=== PATIENT | male | born 1940 | race Two or more races ===

== ENCOUNTER 2019-01-13 10:15 | Inpatient (IN) | payer MEDICARE, MEDICAID ==
[~2019-01-13] VITALS: Ht 167.6 cm; Wt 52.2 kg
[2019-01-13] MEDS ORDERED: LANTUS SOL100 UNIT/1 SUBQ (10:19)
[2019-01-13] MEDS ORDERED: METFORMIN HCL500 M1 ORAL (10:19)
[2019-01-13 10:24] VITALS: BP 205/95
--- NOTE | 2019-01-13 10:32 | NUR ---
ED Nurse Note: brought in by RA 26 from home due to low BS. Per EMS, initial BS was 30 and 250ml of D10 given by EMS. At the bedside, BS was 136. Pt is awake and alert does not remember what happened nor his name.
--- NOTE | 2019-01-13 10:42 | Emergency Room Report ---
History of Present Illness General Chief Complaint: Abnormal Labs Source: Patient, EMS Present Illness HPI Patient presents from nursing facility with reports of low blood sugar upon arrival the patient still has underlying confusion Does not know where he is does not know where he lives He is not aware of his medical diagnoses Currently denies any chest pain or shortness of breath denies any vomiting or diarrhea denies any focal weakness History of present illness is limited as the patient Appears to have some underlying dementia as well Allergies: Coded Allergies: No Known Allergies (Unverified , 01/13/19) Patient History Limited by: medical condition Past Medical History: see triage record Pertinent Family History: unable to obtain Reviewed Nursing Documentation: PMH: Agreed; PSxH: Agreed Nursing Documentation-PMH Past Medical History: No History, Except For Hx Diabetes: Yes Hx Neurological Problems: No - prostate Review of Systems All Other Systems: limited - Other than the ones mentioned in the history of present illness all others are reviewed however they do stay limited due to the patient's mental status Physical Exam Vital Signs Date Time Temp Pulse Resp B/P (MAP) Pulse Ox O2 Delivery O2 Flow Rate FiO2 01/13/19 10:17 98.2 74 18 187/87 98 Room Air Sp02 EP Interpretation: reviewed, normal General Appearance: no apparent distress Head: normocephalic, atraumatic Eyes: bilateral eye PERRL, bilateral eye EOMI ENT: dry mucus membranes Neck: supple, thyroid normal Respiratory: lungs clear, no respiratory distress, no retraction, no accessory muscle use Cardiovascular #1: regular rate, rhythm Gastrointestinal: non tender, other - Large mid abdominal firm mass palpable, nonpulsatile Musculoskeletal: normal inspection, other - No obvious focal deficit Neurologic: alert - To self, responsive Skin: normal color, no rash Lymphatic: no adenopathy Medical Decision Making Diagnostic Impression: Primary Impression: Persistent hypolycemia Additional Impressions: Malfunction of Mendez catheter Hydroureteronephrosis ER Course Patient is a fairly complex patient with multiple differential to consideration including but not limited to cardiac cardiopulmonary and vascular emergencies Given the hypoglycemia also medication reaction versus infectious pathology entertained Patient's initial glucose was at 80 after intervention however again on repeat evaluation is Reading low patient requires further dextrose Given the lack of appropriate input and history And the lack of knowledge regarding the abdominal mass CT imaging was also obtained GI and general surgery also consulted and patient admitted for further care The CT imaging does reveal malpositioning of the Mendez catheter patient has a very enlarged prostate likely leading to the malpositioning, this will require further intervention Labs Test 01/13/19 10:15 01/13/19 11:35 White Blood Count 9.0 K/UL (4.8-10.8) Red Blood Count 3.41 M/UL (4.70-6.10) Hemoglobin 10.3 G/DL (14.2-18.0) Hematocrit 31.6 % (42.0-52.0) Mean Corpuscular Volume 93 FL (80-99) Mean Corpuscular Hemoglobin 30.3 PG (27.0-31.0) Mean Corpuscular Hemoglobin Concent 32.7 G/DL (32.0-36.0) Red Cell Distribution Width 13.4 % (11.6-14.8) Platelet Count 207 K/UL (150-450) Mean Platelet Volume 6.2 FL (6.5-10.1) Neutrophils (%) (Auto) % (45.0-75.0) Lymphocytes (%) (Auto) % (20.0-45.0) Monocytes (%) (Auto) % (1.0-10.0) Eosinophils (%) (Auto) % (0.0-3.0) Basophils (%) (Auto) % (0.0-2.0) Differential Total Cells Counted 100 Neutrophils % (Manual) 83 % (45-75) Lymphocytes % (Manual) 12 % (20-45) Monocytes % (Manual) 5 % (1-10) Eosinophils % (Manual) 0 % (0-3) Basophils % (Manual) 0 % (0-2) Band Neutrophils 0 % (0-8) Platelet Estimate Adequate Platelet Morphology Normal Red Blood Cell Morphology Normal Urine Color Pale yellow Urine Appearance Cloudy Urine pH 5 (4.5-8.0) Urine Specific [place] 1.020 (1.005-1.035) Urine Protein 3+ (NEGATIVE) Urine Glucose (UA) Negative (NEGATIVE) Urine Ketones Negative (NEGATIVE) Urine Blood 5+ (NEGATIVE) Urine Nitrite Negative (NEGATIVE) Urine Bilirubin Negative (NEGATIVE) Urine Urobilinogen Normal MG/DL (0.0-1.0) Urine Leukocyte Esterase 3+ (NEGATIVE) Urine RBC 40-60 /HPF (0 - 0) Urine WBC 15-20 /HPF (0 - 0) Urine Squamous Epithelial Cells Occasional /LPF Urine Bacteria Few /HPF (NONE) Sodium Level 137 MMOL/L (136-145) Potassium Level 5.3 MMOL/L (3.5-5.1) Chloride Level 103 MMOL/L (98-107) Carbon Dioxide Level 20 MMOL/L (21-32) Anion Gap 14 mmol/L (5-15) Blood Urea Nitrogen 60 mg/dL (7-18) Creatinine 3.8 MG/DL (0.55-1.30) Estimat Glomerular Filtration Rate mL/min (>60) Glucose Level 186 MG/DL (74-106) Lactic Acid Level 2.40 mmol/L (0.4-2.0) 2.00 mmol/L (0.66-2.22) Calcium Level 9.3 MG/DL (8.5-10.1) Total Bilirubin 0.2 MG/DL (0.2-1.0) Aspartate Amino Transf (AST/SGOT) 20 U/L (15-37) Alanine Aminotransferase (ALT/SGPT) 22 U/L (12-78) Alkaline Phosphatase 81 U/L (46-116) Total Creatine Kinase 127 U/L (26-308) Creatine Kinase MB 5.0 NG/ML (0.0-3.6) Creatine Kinase MB Relative Index 3.9 Troponin I 0.000 ng/mL (0.000-0.056) Total Protein 7.6 G/DL (6.4-8.2) Albumin 3.0 G/DL (3.4-5.0) Globulin 4.6 g/dL Albumin/Globulin Ratio 0.7 (1.0-2.7) Lipase 124 U/L (73-393) Rhythm Strip Diag. Results EP Interpretation: yes Rate: 80 Rhythm: NSR, no PVC's, no ectopy Chest X-Ray Diagnostic Results Chest X-Ray Diagnostic Results : Chest X-Ray Ordered: Yes # of Views/Limited/Complete: 1 View Indication: Chest Pain EP Interpretation: Yes Interpretation: no consolidation, no effusion, no pneumothorax Impression: No acute disease Electronically Signed by: Britt Deluna, DO CT/MRI/US Diagnostic Results CT/MRI/US Diagnostic Results : Impression CT abdomen pelvisIMPRESSION: Bladder outlet obstruction due to a malpositioned Mendez catheter and prostate hypertrophy. Associated moderate hydroureteronephrosis. Patchy basilar infiltrates Hiatal hernia. Gallstones Last Vital Signs Date Time Temp Pulse Resp B/P (MAP) Pulse Ox O2 Delivery O2 Flow Rate FiO2 01/13/19 10:24 98.2 100 21 205/95 100 Room Air Status: improved Disposition: ADMITTED INPATIENT Condition: Serious Britt Deluna DO Jan 13, 2019 10:42
--- NOTE | 2019-01-13 10:42 | NUR ---
ED Nurse Note: Blood specimens and urine sent down to the lab. Pt has herrera cathether from home. A/Ox2.
[2019-01-13 10:54] LABS: HEMATOCRIT 31.6 % (42.0-52.0); HEMOGLOBIN 10.3 G/DL (14.2-18.0); MEAN CORPUSCULAR VOLUME 93 FL (80-99); PLATELET COUNT 207 K/UL (150-450); RED BLOOD COUNT 3.41 M/UL (4.70-6.10); RED CELL DISTRIBUTION WIDTH 13.4 % (11.6-14.8)
[2019-01-13 10:55] LABS: APPEARANCE,URINE CLOUDY; BILIRUBIN, URINE NEGATIVE (NEGATIVE); COLOR,URINE PALE YELLOW; GLUCOSE, URINE (UA) NEGATIVE (NEGATIVE); KETONES,URINE NEGATIVE (NEGATIVE); LEUKOCYTE ESTERASE ,URINE 3+ (NEGATIVE); NITRITE,URINE NEGATIVE (NEGATIVE); PH,URINE 5 (4.5-8.0); PROTEIN,URINE 3+ (NEGATIVE); UROBILINOGEN,URINE NORMAL MG/DL (0.0-1.0)
[2019-01-13 11:08] LABS: ANION GAP 14 mmol/L (5-15); BLOOD UREA NITROGEN 60 mg/dL (7-18); CALCIUM 9.3 MG/DL (8.5-10.1); CARBON DIOXIDE 20 MMOL/L (21-32); CHLORIDE 103 MMOL/L (98-107); CREATININE 3.8 MG/DL (0.55-1.30); POTASSIUM 5.3 MMOL/L (3.5-5.1); SODIUM 137 MMOL/L (136-145)
--- NOTE | 2019-01-13 11:38 | NUR ---
ED Nurse Note: LACTIC REFLEX SENT DOWN TO THE LAB.
[2019-01-13 11:41] LABS: ALANINE AMINOTRANSFERASE 22 U/L (12-78); ALBUMIN/GLOBULIN RATIO 0.7 (1.0-2.7); ALKALINE PHOSPHATASE 81 U/L (46-116); ASPARTATE AMINO TRANSFERASE 20 U/L (15-37); BILIRUBIN,TOTAL 0.2 MG/DL (0.2-1.0); CREATINE KINASE 127 U/L (26-308)
--- NOTE | 2019-01-13 11:44 | Diagnostic Imaging Report ---
Indication: Dyspnea Comparison: None A single view chest radiograph was obtained. Findings: Cardiomediastinal appearance is within normal limits for age. The lungs are clear. Pulmonary vascularity is appropriate. The diaphragmatic contour is smooth and costophrenic angles are sharp. No pleural effusions are identified. The bones are unremarkable. Impression: No acute findings
[2019-01-13] MEDS ORDERED: cefTRIAXone 1 GM in NS 55 ML IVPB ONE (12:15)
--- NOTE | 2019-01-13 13:02 | NUR ---
ED Nurse Note: PER ODIN CAIN, UNABLE TO GIVE TELEPHONE REPORT DUE TO INTERNAL PHONE SYSTEM DOWN AT THIS TIME.
--- NOTE | 2019-01-13 13:12 | NUR ---
ED Nurse Note: ATTEMPTED TO GIVE REPORT, NO NURSE RECEIVING THE REPORT AT THIS TIME.
[2019-01-13 13:25] VITALS: BP 174/70
--- NOTE | 2019-01-13 13:25 | NUR ---
ED Nurse Note: TELEPHONE REPORT GIVEN TO LISA SMITH. PER RN, BED IS NOT READY. WILL SEND THE PT UP ONCE THE BED IS READY.
--- NOTE | 2019-01-13 13:30 | NUR ---
ED Nurse Note: BS CHECKED. BS RESULT OF CRITICALL LOW. NOTIFIED DR. Medina WILL FOLLOW UP ON NEW ORDER.
--- NOTE | 2019-01-13 13:36 | NUR ---
Note lemuel in EDM - 01/13/19 at 1354 by [email or web address] ED Nurse Note: PER DR. Villanueva, HE WILL ORDER CT ABDOMINAL AND PT CAN BE TRANSFER UP TO 2E WITHOUT THE RESULT. RADIOLOGY CONTACTED FOR THE NEW ORDER.
--- NOTE | 2019-01-13 14:34 | NUR ---
TRANSFER TO FLOOR: Per Dr Villanueva, no need to wait for the CT abdomin result. Patient transferred to #[id number] as ordered via gurney and textiles and clothing teacher. Report given to LISA Paredes. Belongings given to pt and belonging list checked by ODIN Villafana. Pt's BS is 115 after D50%, LISA Paredes made aware.
--- NOTE | 2019-01-13 14:40 | NUR ---
NURSE NOTES: Received report from Steve GONZALEZ. Pt was admitted from ER via [facility], arrived to unit awake, alert, oriented x3, Upper Sorbian speaking, able to communicate minimal Egyptian. Tele monitor placed on pt, displays ST, HR fluctuating from 110-140's, pt is visibly shaking, reports feeling very cold. On room air with no respiratory distress. Denies pain. Skin is intact. IV access on right AC #20G, saline lock, patent/intact. Per pt, he has been using a cane at home for ambulation, which was left at home. Currently pt is on fall precautions, bed in lowest position, three side rails up, brakes engaged, alarm on, call light within easy reach. Pt presents with a Mendez catheter and leg/bag, draining a small amount of dark/cloudy urine. Upon assessment, abdomen/bladder is very distended. Will contact MD for admission orders and follow plan of care per MD orders and protocol.
--- NOTE | 2019-01-13 14:43 | Diagnostic Imaging Report ---
Indication: Abdominal pain Technique: Continuous helical transaxial imaging of the abdomen and pelvis was obtained from the lung bases to the pubic symphysis. No intravenous contrast was administered. Coronal 2-D reformats were also obtained. Automatic Exposure Control was utilized. Total Dose length Product (DLP): 473.[address] Dose Index Volume (CTDIvol): 9.5 mGy Comparison: none Findings: There are patchy ill-defined infiltrates at the lung bases suspicious for pneumonia. Correlate clinically. Hiatal hernia moderate in size demonstrated. The urinary bladder is severely distended suspicious for bladder outlet obstruction. A Mendez catheter is present but the balloon is inflated within the prostate gland. This requires repositioning. The prostate is enlarged measuring 7.6 x 5.2 x 5.7 cm. There is associated moderate bilateral hydroureteronephrosis. Gallstones noted within a contracted gallbladder. IMPRESSION: Bladder outlet obstruction due to a malpositioned Mendez catheter and prostate hypertrophy. Associated moderate hydroureteronephrosis. Patchy basilar infiltrates Hiatal hernia. Gallstones The CT scanner at [facility] is accredited by the [employer] and the scans are performed using dose optimization techniques as appropriate to a performed exam including Automatic Exposure control.
--- NOTE | 2019-01-13 14:57 | GI Initial Consult Note ---
History of Present Illness General Date patient seen: Jan 13, 2019 Time patient seen: 14:53 Reason for Hospitalization: Abnormal Labs Referring physician: KUMAR Reason for Consultation: Abdominal mass Present Illness HPI Patient presents from nursing facility with reports of low blood sugar upon arrival the patient still has underlying confusion Does not know where he is does not know where he lives He is not aware of his medical diagnoses Currently denies any chest pain or shortness of breath denies any vomiting or diarrhea denies any focal weakness History of present illness is limited as the patient Appears to have some underlying dementia as well GI consulted for reported abdominal mass. ROS limited, patient with AMS. Patient seen, awake alert and oriented in no apparent distress. Noted to have severe lower abdominal distention. Abdominal pelvic CT was performed in the emergency room noted that the urinary bladder is severely distended due to bladder outlet obstruction secondary to malposition of the Herrera catheter. Labs reviewed; no leukocytosis, normocytic anemia with hemoglobin of 10.3, elevated creatinine level of 3.8, hyperkalemia with potassium of 5.3. Unknown history of endoscopic or colonoscopy at this time. Home Meds Reported Medications Insulin Glargine (LANTUS) 100 Unit/1 Ml Insuln.pen, 0 SUBQ BEDTIME, #1 EA 0 Refills 01/13/19 Metformin Hcl* (METFORMIN HCL*) 500 Mg Tablet, ORAL TWICE A DAY, TAB 01/13/19 Med list reviewed/reconciled: Yes Allergies: Coded Allergies: No Known Allergies (Unverified , 01/13/19) Patient History History Provided By: Medical Record PMH Narrative Limited by: medical condition Past Medical History: see triage record Pertinent Family History: unable to obtain Reviewed Nursing Documentation: PMH: Agreed; PSxH: Agreed Nursing Documentation-PMH Past Medical History: No History, Except For Hx Diabetes: Yes Hx Neurological Problems: No - prostate Social History: Denies: smoking, alcohol use, drug use, other Review of Systems All Other Systems: limited Physical Exam Vital Signs Date Time Temp Pulse Resp B/P (MAP) Pulse Ox O2 Delivery O2 Flow Rate FiO2 01/13/19 10:17 98.2 74 18 187/87 98 Room Air Sp02 EP Interpretation: reviewed, normal Labs Laboratory Tests Test 01/13/19 10:15 01/13/19 11:35 White Blood Count 9.0 K/UL (4.8-10.8) Red Blood Count 3.41 M/UL (4.70-6.10) L Hemoglobin 10.3 G/DL (14.2-18.0) L Hematocrit 31.6 % (42.0-52.0) L Mean Corpuscular Volume 93 FL (80-99) Mean Corpuscular Hemoglobin 30.3 PG (27.0-31.0) Mean Corpuscular Hemoglobin Concent 32.7 G/DL (32.0-36.0) Red Cell Distribution Width 13.4 % (11.6-14.8) Platelet Count 207 K/UL (150-450) Mean Platelet Volume 6.2 FL (6.5-10.1) L Neutrophils (%) (Auto) % (45.0-75.0) Lymphocytes (%) (Auto) % (20.0-45.0) Monocytes (%) (Auto) % (1.0-10.0) Eosinophils (%) (Auto) % (0.0-3.0) Basophils (%) (Auto) % (0.0-2.0) Differential Total Cells Counted 100 Neutrophils % (Manual) 83 % (45-75) H Lymphocytes % (Manual) 12 % (20-45) L Monocytes % (Manual) 5 % (1-10) Eosinophils % (Manual) 0 % (0-3) Basophils % (Manual) 0 % (0-2) Band Neutrophils 0 % (0-8) Platelet Estimate Adequate Platelet Morphology Normal Red Blood Cell Morphology Normal Urine Color Pale yellow Urine Appearance Cloudy Urine pH 5 (4.5-8.0) Urine Specific [place] 1.020 (1.005-1.035) Urine Protein 3+ (NEGATIVE) H Urine Glucose (UA) Negative (NEGATIVE) Urine Ketones Negative (NEGATIVE) Urine Blood 5+ (NEGATIVE) H Urine Nitrite Negative (NEGATIVE) Urine Bilirubin Negative (NEGATIVE) Urine Urobilinogen Normal MG/DL (0.0-1.0) Urine Leukocyte Esterase 3+ (NEGATIVE) H Urine RBC 40-60 /HPF (0 - 0) H Urine WBC 15-20 /HPF (0 - 0) H Urine Squamous Epithelial Cells Occasional /LPF Urine Bacteria Few /HPF (NONE) Sodium Level 137 MMOL/L (136-145) Potassium Level 5.3 MMOL/L (3.5-5.1) H Chloride Level 103 MMOL/L (98-107) Carbon Dioxide Level 20 MMOL/L (21-32) L Anion Gap 14 mmol/L (5-15) Blood Urea Nitrogen 60 mg/dL (7-18) H Creatinine 3.8 MG/DL (0.55-1.30) H Estimat Glomerular Filtration Rate mL/min (>60) Glucose Level 186 MG/DL (74-106) H Lactic Acid Level 2.40 mmol/L (0.4-2.0) H 2.00 mmol/L (0.66-2.22) Calcium Level 9.3 MG/DL (8.5-10.1) Total Bilirubin 0.2 MG/DL (0.2-1.0) Aspartate Amino Transf (AST/SGOT) 20 U/L (15-37) Alanine Aminotransferase (ALT/SGPT) 22 U/L (12-78) Alkaline Phosphatase 81 U/L (46-116) Total Creatine Kinase 127 U/L (26-308) Creatine Kinase MB 5.0 NG/ML (0.0-3.6) H Creatine Kinase MB Relative Index 3.9 Troponin I 0.000 ng/mL (0.000-0.056) Total Protein 7.6 G/DL (6.4-8.2) Albumin 3.0 G/DL (3.4-5.0) L Globulin 4.6 g/dL Albumin/Globulin Ratio 0.7 (1.0-2.7) L Lipase 124 U/L (73-393) General Appearance: well appearing, no apparent distress, alert Head: normocephalic EENT: PERRL/EOMI, normal ENT inspection Neck: supple Respiratory: normal breath sounds, no respiratory distress Cardiovascular: normal rate Gastrointestinal: normal inspection, non tender, soft, normal bowel sounds, non -distended, distended - Lower abdominal/pelvic Rectal: deferred Genitourinary: deferred Musculoskeletal: normal inspection, back normal Neurologic: normal inspection, alert, oriented x3, responsive Psychiatric: normal inspection, judgement/insight normal, memory normal Skin: normal inspection, normal color, no rash, warm/dry, palpation normal, well hydrated Lymphatic: normal inspection, no adenopathy GI: Plan Problems: (1) Anemia (2) Malfunction of Herrera catheter (3) Distended bladder (4) Abdominal pain (5) Hydroureteronephrosis Plan reinsert new herrera anemia work up OB stool r/o GI bleed monitor H&H, prn transfusions bowel regime ppi fu labs We will consider endoscopic colonoscopy if necessary Discussed with Dr. Gonzalez. Thank you for this patient referral, we will follow. The patient was seen and examined at bedside and all new and available data was reviewed in the patients chart. I agree with the above findings, impression and plan. (Patient seen earlier today. Signature stamp does not reflect patient encounter time.). - MD Polly Jackson AnhBradley BREEDER HEN SERVICE TECHNICIAN Jan 13, 2019 14:57
[2019-01-13 16:00] VITALS: BP 107/77
[2019-01-13] MEDS ORDERED: D5 1/4NS 1000ml 1,000 ML IV SCH (16:00)
--- NOTE | 2019-01-13 16:30 | NUR ---
NURSE NOTES: Per orders, Mendez Catheter was replaced with a new 16F Mendez catheter, initial drain was dark red blood clot, followed by clear/yellow urine, total output 1800mL. Pt states feeling relieved.
[2019-01-13] MEDS ORDERED: D5 1/2NS 1,000 ML IV SCH (16:45)
[2019-01-13] MEDS ORDERED: TAMSULOSIN HCL0.4 MG ORAL (18:35)
[2019-01-13] MEDS ORDERED: LOSARTAN POTASS25 M1 PO (18:35)
[2019-01-13] MEDS ORDERED: AVODART0.5 MG ORAL (18:35)
--- NOTE | 2019-01-13 19:15 | NUR ---
CASE MANAGEMENT: INITIAL REVIEW 01/13/2019 78 YO M ROWENA FROM HOME CC: LOW BS PMHx: DM. SI:PERSISTENT HYPOGLYCEMIA. T 98.2 HR 74 RR 18 B/P 187/87 SATS 98% ON RA K 5.3 CO2 20 BUN 60 CR 3.8 GLU 186 IS: NO MEDS GIVEN IN ED PATIENT ADMITTED TO TELE 01/13/2019 @ 1108 DCP: PATIENT TO BE DISCHARGED TO HOME ONCE MEDICALLY CLEARED. PLAN OF CARE: GLYCEMIC CONTROL AND MONITORING Addendum: 01/13/19 at 1935 by Ana Kidd CM [employer]
--- NOTE | 2019-01-13 19:33 | NUR ---
NURSE NOTES: Patient received from LISA Paredes. Patient on bed, awake, no distress noted. On room air. Mendez catheter in place. draining with yellow colored urine. No complaints of pain at this time. Call light within reach. Bed brakes engaged.
[2019-01-13 20:00] VITALS: BP 137/67
--- NOTE | 2019-01-13 20:12 | NUR ---
HAND-OFF: Report given to Salma GONZALEZ. Pt is resting in bed in stable condition. Endorsed plan of care.
[2019-01-13] MEDS: NovoLOG Insulin Flexpen SUBQ SCH (21:00)
[2019-01-13] MEDS ORDERED: Tamsulosin 0.4mg cap ORAL SCH (21:00)
--- NOTE | 2019-01-13 21:09 | NUR ---
NURSE NOTES: BS 35. D50 25ml given. Awake, eyes are open. Noted confusion and disoriented. Two cups of apple juice given. Angelica, daughter at bedside at this time.
--- NOTE | 2019-01-13 21:32 | NUR ---
NURSE NOTES: BS 185. Patient is more alert, speaking in tuvaluan with daughter.
--- NOTE | 2019-01-13 22:32 | NUR ---
NURSE NOTES: BS retaken. BS135. Monitoring patient closely for signs of hypoglycemia. At this time, patient is resting. No distress noted.
[2019-01-13 23:55] VITALS: BP 148/94
[2019-01-14 03:53] VITALS: BP 143/70
[2019-01-14] MEDS: NovoLOG Insulin Flexpen SUBQ SCH ×4 (05:28→21:04)
--- NOTE | 2019-01-14 05:31 | NUR ---
NURSE NOTES: BS63 at this time. D50 25ml given. Will recheck again. Patient alert, able to verbalize. Denies pain.
--- NOTE | 2019-01-14 06:41 | NUR ---
NURSE NOTES: BS124. Patient is awake, talkative and is having concerns about his health. He expresses his concerns regarding his prostate and wants surgery done to it so he wont be in this situation again and with herrera catheter. Explained to patient that we will have the PMD aware of his concerns. He verbalized understanding.
--- NOTE | 2019-01-14 07:19 | NUR ---
HAND-OFF: Report given to LISA Bowden. Plan of care.
--- NOTE | 2019-01-14 07:20 | NUR ---
NURSE NOTES: Received patient from LISA Fountain. Patient is resting in bed, awake and verbally responsive. No signs of distress. Well-groomed, clean and dry. Bed in lowest position with two side rails up.Bed brakes engaged. Call light and bed side table within reach. Will continue to monitor and follow plan of care.
[2019-01-14 08:00] VITALS: BP 149/65
[2019-01-14 08:38] LABS: BASOPHILS % (AUTO) 0.6 % (0.0-2.0); EOSINOPHILS % (AUTO) 1.4 % (0.0-3.0); HEMATOCRIT 31.9 % (42.0-52.0); HEMOGLOBIN 10.5 G/DL (14.2-18.0); LYMPHOCYTES % (AUTO) 19.2 % (20.0-45.0); MEAN CORPUSCULAR VOLUME 93 FL (80-99); MONOCYTES % (AUTO) 4.8 % (1.0-10.0); NEUTROPHILS % (AUTO) 74.1 % (45.0-75.0); PLATELET COUNT 207 K/UL (150-450); RED BLOOD COUNT 3.45 M/UL (4.70-6.10); RED CELL DISTRIBUTION WIDTH 13.5 % (11.6-14.8); WHITE BLOOD COUNT 8.8 K/UL (4.8-10.8)
[2019-01-14] MEDS ORDERED: metFORMIN 500mg tab ORAL SCH (09:00)
[2019-01-14] MEDS ORDERED: Losartan 25mg tab ORAL SCH (09:00)
[2019-01-14 09:17] LABS: ALANINE AMINOTRANSFERASE 15 U/L (12-78); ALBUMIN 2.6 G/DL (3.4-5.0); ALBUMIN/GLOBULIN RATIO 0.6 (1.0-2.7); ALKALINE PHOSPHATASE 76 U/L (46-116); ANION GAP 14 mmol/L (5-15); ASPARTATE AMINO TRANSFERASE 20 U/L (15-37); BILIRUBIN,TOTAL 0.4 MG/DL (0.2-1.0); BLOOD UREA NITROGEN 47 mg/dL (7-18); CALCIUM 8.8 MG/DL (8.5-10.1); CARBON DIOXIDE 20 MMOL/L (21-32); CHLORIDE 105 MMOL/L (98-107); CREATININE 3.2 MG/DL (0.55-1.30); FERRITIN 560 NG/ML (8-388); POTASSIUM 4.6 MMOL/L (3.5-5.1); SODIUM 139 MMOL/L (136-145)
[2019-01-14 09:37] LABS: INR 1.1 (0.9-1.1)
[2019-01-14 09:42] LABS: % IRON SATURATION 13 % (15-50); IRON 29 ug/dL (50-175); TOTAL IRON BINDING CAPACITY 222 ug/dL (250-450)
--- NOTE | 2019-01-14 10:46 | GI Progress Note ---
Assessment/Plan Problems: (1) Malfunction of Mendez catheter ICD Codes: T83.011A - Breakdown (mechanical) of indwelling urethral catheter, initial encounter SNOMED: 350410419 (2) Hydroureteronephrosis ICD Codes: N13.30 - Unspecified hydronephrosis SNOMED: 20693035 (3) Abdominal pain ICD Codes: R10.9 - Unspecified abdominal pain SNOMED: 84760740 (4) Distended bladder ICD Codes: N32.89 - Other specified disorders of bladder SNOMED: 78482990 (5) Anemia ICD Codes: D64.9 - Anemia, unspecified SNOMED: 396555825 Status: doing well, stable Status Narrative Discussed with Dr. Gonzalez Assessment/Plan Mendez catheter replaced, with 1.8 L of output advance renal diet anemia work up >> has low iron saturation, but will hold Venofer due to elevated ferritin levels OB stool r/o GI bleed monitor H&H, prn transfusions bowel regime ppi fu labs We will consider endoscopic colonoscopy if necessary The patient was seen and examined at bedside and all new and available data was reviewed in the patients chart. I agree with the above findings, impression and plan. (Patient seen earlier today. Signature stamp does not reflect patient encounter time.). - Guanakito Gonzalez MD Subjective Subjective Abdominal pain and abdominal distention resolved Objective Last 24 Hour Vital Signs Date Time Temp Pulse Resp B/P (MAP) Pulse Ox O2 Delivery O2 Flow Rate FiO2 01/14/19 09:00 Room Air 01/14/19 08:00 99.1 72 18 149/65 (93) 100 01/14/19 08:00 81 01/14/19 03:53 97.7 72 16 143/70 (94) 98 01/14/19 03:37 64 01/13/19 23:55 96.5 94 18 148/94 (112) 98 01/13/19 23:28 73 01/13/19 21:00 Room Air 01/13/19 20:06 93 01/13/19 20:00 97.4 92 20 137/67 (90) 97 01/13/19 16:00 96.2 86 20 107/77 (87) 95 01/13/19 16:00 125 01/13/19 14:43 140 01/13/19 14:35 98.2 76 13 174/70 98 Room Air 01/13/19 14:30 Room Air 01/13/19 13:25 76 13 174/70 98 Room Air Intake and Output 01/13/19 01/14/19 19:00 07:00 Intake Total 565 ml 480 ml Output Total 2050 ml 1300 ml Balance -1485 ml -820 ml Intake Oral 450 ml 120 ml IV Total 115 ml 360 ml Output Urine Total 2050 ml 1300 ml # Bowel Movements 1 Laboratory Tests Test 01/13/19 11:35 01/14/19 07:36 01/14/19 09:00 Lactic Acid Level 2.00 mmol/L (0.66-2.22) White Blood Count 8.8 K/UL (4.8-10.8) Red Blood Count 3.45 M/UL (4.70-6.10) L Hemoglobin 10.5 G/DL (14.2-18.0) L Hematocrit 31.9 % (42.0-52.0) L Mean Corpuscular Volume 93 FL (80-99) Mean Corpuscular Hemoglobin 30.5 PG (27.0-31.0) Mean Corpuscular Hemoglobin Concent 32.9 G/DL (32.0-36.0) Red Cell Distribution Width 13.5 % (11.6-14.8) Platelet Count 207 K/UL (150-450) Mean Platelet Volume 6.6 FL (6.5-10.1) Neutrophils (%) (Auto) 74.1 % (45.0-75.0) Lymphocytes (%) (Auto) 19.2 % (20.0-45.0) L Monocytes (%) (Auto) 4.8 % (1.0-10.0) Eosinophils (%) (Auto) 1.4 % (0.0-3.0) Basophils (%) (Auto) 0.6 % (0.0-2.0) Reticulocyte Count Pending Sodium Level 139 MMOL/L (136-145) Potassium Level 4.6 MMOL/L (3.5-5.1) Chloride Level 105 MMOL/L (98-107) Carbon Dioxide Level 20 MMOL/L (21-32) L Anion Gap 14 mmol/L (5-15) Blood Urea Nitrogen 47 mg/dL (7-18) H Creatinine 3.2 MG/DL (0.55-1.30) H Estimat Glomerular Filtration Rate mL/min (>60) Glucose Level 138 MG/DL (74-106) H Calcium Level 8.8 MG/DL (8.5-10.1) Iron Level 29 ug/dL (50-175) L Total Iron Binding Capacity 222 ug/dL (250-450) L Percent Iron Saturation 13 % (15-50) L Unsaturated Iron Binding 193 ug/dL (112-346) Ferritin 560 NG/ML (8-388) H Total Bilirubin 0.4 MG/DL (0.2-1.0) Aspartate Amino Transf (AST/SGOT) 20 U/L (15-37) Alanine Aminotransferase (ALT/SGPT) 15 U/L (12-78) Alkaline Phosphatase 76 U/L (46-116) Total Protein 7.0 G/DL (6.4-8.2) Albumin 2.6 G/DL (3.4-5.0) L Globulin 4.4 g/dL Albumin/Globulin Ratio 0.6 (1.0-2.7) L Carcinoembryonic Antigen Pending Vitamin B12 Level 408 PG/ML (193-986) Folate 14.7 NG/ML (8.6-58.9) Thyroid Stimulating Hormone (TSH) 3.854 uiU/mL (0.358-3.740) Free Thyroxine 0.90 NG/DL (0.76-1.46) Prothrombin Time 11.5 SEC (9.30-11.50) Prothromb Time International Ratio 1.1 (0.9-1.1) Activated Partial Thromboplast Time 31 SEC (23-33) Height (Feet): 5 Height (Inches): 6.00 Weight (Pounds): 120 General Appearance: WD/WN, no apparent distress, alert Cardiovascular: normal rate Respiratory/Chest: normal breath sounds, no respiratory distress Abdominal Exam: normal bowel sounds, non tender, soft Extremities: normal range of motion, non-tender Objective Mendez draining well Evelio Matias NP Jan 14, 2019 10:46
--- NOTE | 2019-01-14 11:26 | NUR ---
CASE MANAGEMENT:REVIEW 01/14/19 SI: HYDROURETERONEPHROSIS ABD PAIN. ANEMIA. MALFUNCTION BAEZ 99.1 72 18 149/65 100% ON RA H/H-10.5/31.9 BUN+47 CR+3.2 IS: SS INSULIN AC+HS FLOMAX PO QHS : TELEMETRY STATUS DCP: PATIENT IS FROM HOME PLAN: SWALLOW EVAL
--- NOTE | 2019-01-14 11:35 | NUR ---
NURSE NOTES: Patient transferred from telemetry, report received from William GONZALEZ, belongings reviewed, no discrepancies noted, no distress noted, bed is locked and in lowest position, patient oriented to floor, will continue to monitor.
--- NOTE | 2019-01-14 11:35 | NUR ---
TRANSFER TO FLOOR: Patient transferred to [facility], per Dr. Goldman's order. Report given to LISA Mckeon. Belongings given to LISA Mckeon. Family (Angelica) informed of transfer. Patient transferred in stable condition.
[2019-01-14 12:00] VITALS: BP 146/72
--- NOTE | 2019-01-14 13:47 | Consultation ---
History of Present Illness General Date patient seen: Jan 14, 2019 Reason for Hospitalization: Abnormal Labs Present Illness HPI 78 year old male with multiple medical comorbidities and chronic indwelling catheter presented with abdominal pain and abnormal labs. on exam had large abd mass. surgery called to evaluate. patient seen, chart reviewed, patient examined. CT noted. Allergies: Coded Allergies: No Known Allergies (Unverified , 01/13/19) Medication History Scheduled Dutasteride (Avodart), 0.5 MG ORAL DAILY, (Reported) Insulin Glargine (Lantus), 0 SUBQ BEDTIME, (Reported) Losartan Potassium (Losartan Potassium), 25 MG PO DAILY, (Reported) Metformin Hcl* (Metformin Hcl*), Unknown Dose ORAL TWICE A DAY, (Reported) Tamsulosin Hcl (Tamsulosin Hcl*), 0.4 MG ORAL BEDTIME, (Reported) Patient History History Provided By: Patient, Family Member, Medical Record, PMD Healthcare decision maker Resuscitation status Full Code Advanced Directive on File Past Medical/Surgical History Past Medical/Surgical History: (1) Anemia (2) Distended bladder (3) Abdominal pain (4) Hydroureteronephrosis (5) Malfunction of Herrera catheter (6) Persistent hypolycemia Review of Systems Review of Symptoms General ROS: no weight loss or fever Psychological ROS: no depression or mood changes, no memory loss Ophthalmic ROS: no visual changes or eye irritation ENT ROS: no nasal congestion, hearing loss, dizziness Allergy and Immunology ROS: no allergic symptoms or urticaria Hematological and Lymphatic ROS: no swollen glands, unusual bleeding or bruising Endocrine ROS: no polyuria, polydipsia, weight changes, temperature intolerance Respiratory ROS: no cough, shortness of breath, or wheezing Cardiovascular ROS: no chest pain or dyspnea on exertion Gastrointestinal ROS: denies abdominal pain, bright red blood in stool. Musculoskeletal ROS: no myalgias or arthralgias Neurological ROS: no TIA or stroke symptoms Dermatological ROS: no new or changing skin lesions, rashes or pruritis Physical Exam Physical Exam General appearance: alert, cooperative, no distress, appears stated age Head: Normocephalic, without obvious abnormality, atraumatic Eyes: conjunctivae/corneas clear. PERRL, EOM's intact. Fundi benign Throat: Lips, mucosa, and tongue normal. Teeth and gums normal Neck: supple, symmetrical, trachea midline, no adenopathy, thyroid: not enlarged, symmetric, no tenderness/mass/nodules, no carotid bruit and no JVD Lungs: clear to auscultation bilaterally Heart: regular rate and rhythm, S1, S2 normal, no murmur, click, rub or gallop Abdomen: soft, non-tender. Bowel sounds normal. No masses, likely bladder distention Extremities: extremities normal, atraumatic, no cyanosis or edema Pulses: 2+ and symmetric Skin: Skin color, texture, turgor normal. No rashes or lesions Neurologic: Grossly normal Last 24 Hour Vital Signs Date Time Temp Pulse Resp B/P (MAP) Pulse Ox O2 Delivery O2 Flow Rate FiO2 01/14/19 09:00 Room Air 01/14/19 08:00 99.1 72 18 149/65 (93) 100 01/14/19 08:00 81 01/14/19 03:53 97.7 72 16 143/70 (94) 98 01/14/19 03:37 64 01/13/19 23:55 96.5 94 18 148/94 (112) 98 01/13/19 23:28 73 01/13/19 21:00 Room Air 01/13/19 20:06 93 01/13/19 20:00 97.4 92 20 137/67 (90) 97 01/13/19 16:00 96.2 86 20 107/77 (87) 95 01/13/19 16:00 125 01/13/19 14:43 140 01/13/19 14:35 98.2 76 13 174/70 98 Room Air 01/13/19 14:30 Room Air Intake and Output 01/13/19 01/14/19 19:00 07:00 Intake Total 565 ml 480 ml Output Total 2050 ml 1300 ml Balance -1485 ml -820 ml Intake Oral 450 ml 120 ml IV Total 115 ml 360 ml Output Urine Total 2050 ml 1300 ml # Bowel Movements 1 Laboratory Tests Test 01/14/19 07:36 01/14/19 09:00 White Blood Count 8.8 K/UL (4.8-10.8) Red Blood Count 3.45 M/UL (4.70-6.10) L Hemoglobin 10.5 G/DL (14.2-18.0) L Hematocrit 31.9 % (42.0-52.0) L Mean Corpuscular Volume 93 FL (80-99) Mean Corpuscular Hemoglobin 30.5 PG (27.0-31.0) Mean Corpuscular Hemoglobin Concent 32.9 G/DL (32.0-36.0) Red Cell Distribution Width 13.5 % (11.6-14.8) Platelet Count 207 K/UL (150-450) Mean Platelet Volume 6.6 FL (6.5-10.1) Neutrophils (%) (Auto) 74.1 % (45.0-75.0) Lymphocytes (%) (Auto) 19.2 % (20.0-45.0) L Monocytes (%) (Auto) 4.8 % (1.0-10.0) Eosinophils (%) (Auto) 1.4 % (0.0-3.0) Basophils (%) (Auto) 0.6 % (0.0-2.0) Reticulocyte Count Pending Sodium Level 139 MMOL/L (136-145) Potassium Level 4.6 MMOL/L (3.5-5.1) Chloride Level 105 MMOL/L (98-107) Carbon Dioxide Level 20 MMOL/L (21-32) L Anion Gap 14 mmol/L (5-15) Blood Urea Nitrogen 47 mg/dL (7-18) H Creatinine 3.2 MG/DL (0.55-1.30) H Estimat Glomerular Filtration Rate mL/min (>60) Glucose Level 138 MG/DL (74-106) H Calcium Level 8.8 MG/DL (8.5-10.1) Iron Level 29 ug/dL (50-175) L Total Iron Binding Capacity 222 ug/dL (250-450) L Percent Iron Saturation 13 % (15-50) L Unsaturated Iron Binding 193 ug/dL (112-346) Ferritin 560 NG/ML (8-388) H Total Bilirubin 0.4 MG/DL (0.2-1.0) Aspartate Amino Transf (AST/SGOT) 20 U/L (15-37) Alanine Aminotransferase (ALT/SGPT) 15 U/L (12-78) Alkaline Phosphatase 76 U/L (46-116) Total Protein 7.0 G/DL (6.4-8.2) Albumin 2.6 G/DL (3.4-5.0) L Globulin 4.4 g/dL Albumin/Globulin Ratio 0.6 (1.0-2.7) L Carcinoembryonic Antigen Pending Vitamin B12 Level 408 PG/ML (193-986) Folate 14.7 NG/ML (8.6-58.9) Thyroid Stimulating Hormone (TSH) 3.854 uiU/mL (0.358-3.740) Free Thyroxine 0.90 NG/DL (0.76-1.46) Prothrombin Time 11.5 SEC (9.30-11.50) Prothromb Time International Ratio 1.1 (0.9-1.1) Activated Partial Thromboplast Time 31 SEC (23-33) Height (Feet): 5 Height (Inches): 6.00 Weight (Pounds): 120 Medications Current Medications Medications (Trade) Dose Ordered Sig/Joey Route PRN Reason Start Time Stop Time Status Last Admin Dose Admin Dextrose (Dextrose 50%) 25 ml Q30M PRN IV Hypoglycemia 01/14/19 11:45 02/12/19 16:44 Dextrose (Dextrose 50%) 50 ml Q30M PRN IV Hypoglycemia 01/14/19 11:45 02/12/19 16:44 Insulin Aspart (NovoLOG) BEFORE MEALS AND HS SUBQ 01/14/19 12:00 02/12/19 11:59 Tamsulosin HCl (Flomax) 0.4 mg BEDTIME ORAL 01/14/19 21:00 02/12/19 20:59 Assessment/Plan Problem List: (1) Abdominal pain Assessment & Plan: abd pain with large pelvic mass. herrera changed and resolved. CT noted. malpositioned foloy cath now resolved exam benign now after herrera changed. will follow with recs thank you ICD Codes: R10.9 - Unspecified abdominal pain SNOMED: 35547701 (2) Distended bladder ICD Codes: N32.89 - Other specified disorders of bladder SNOMED: 07065765 Jonn Gonzalez Jan 14, 2019 13:47
--- NOTE | 2019-01-14 15:30 | History and Physical Report ---
DATE OF ADMISSION: 01/13/2019 DATE OF EVALUATION: 01/14/2019 REASON FOR ADMISSION: Hypoglycemia. HISTORY OF PRESENT ILLNESS: This is a very pleasant 78-year-old male, who was presented to the hospital with hypoglycemia. The patient unable to provide any clear history. There are some accompanying medical records, which note that he was seen at [facility] in November with reports that he may need a colostomy bag. The patient has a history of diabetes mellitus, hypertension, BPH, hyperlipidemia. He has a chronic colostomy/chronic urinary bag. The patient was then discharged home. Per paramedics report, the patient was transported from his home with altered level of consciousness. The patient was found at home lying on couch. His blood sugar was running low on the meter and he was transported to [facility] where he was given dextrose with improvement in his mental status. At this point, no other history is known about this patient. PAST HISTORY: Cognitive impairment, hypertension, BPH, chronic Mendez, hyperlipidemia, diabetes mellitus. HOME MEDICATIONS: Not known. REVIEW OF SYSTEMS: Unobtainable. PHYSICAL EXAMINATION: GENERAL: Reveals an 78-year-old male. HEENT: Unremarkable. LUNGS: Clear breath sounds bilaterally. ABDOMEN: Soft. GENITOURINARY: He has a Mendez catheter in place. EXTREMITIES: There is no edema. NEUROLOGIC: Nonfocal. IMAGING STUDIES: The patient underwent an abdominal CT, which showed that he has a malpositioned Mendez and prostate hypertrophy. There is also moderate hydroureteronephrosis and patchy basilar infiltrates as well as hiatal hernia and gallstones. LABORATORY DATA: Lab testing is otherwise unremarkable. Hemoglobin 10.3. Lactic acid 2.0. Initial chemistries notable for potassium 5.3, creatinine 3.8. IMPRESSION: 1. Renal failure. 2. History of BPH. 3. Malpositioned Mendez. 4. Hypoglycemia. 5. Diabetes mellitus. 6. Hypertension. 7. Dementia. 8. Hyperlipidemia. DISCUSSION: Admit to the hospital. We will initiate dextrose infusion. Hold any oral hypoglycemics. Start on sliding scale. I will also discontinue Cozaar given his hyperkalemia. We will consult Nephrology and Endocrinology. We will attempt to obtain more information. I have also discontinued his Glucophage. His Mendez may need to be positioned appropriately. We will follow carefully. Hilario Goldman M.D. DR: NEVIN JOB#: [id number] CC:
[2019-01-14 16:00] VITALS: BP 161/74
--- NOTE | 2019-01-14 17:25 | Cardiology Report ---
APPROVED REPORT EKG Measurement Heart [id number] Sinus tachycardia Otherwise normal ECG
--- NOTE | 2019-01-14 18:30 | Consultation ---
DATE OF CONSULTATION: 01/14/2019 ENDOCRINOLOGY CONSULTATION: CONSULTING PHYSICIAN: Rayshawn Carlisle M.D. REFERRING PHYSICIAN: Hilario Goldman M.D. REASON FOR CONSULTATION: Diabetes management and hypoglycemia. HISTORY OF PRESENT ILLNESS: The patient is an 78-year-old male with past medical history of diabetes, on metformin and Lantus as an outpatient, presents from nursing facility with low blood glucose with altered mental status, elevated lactate, and acute kidney injury. Endocrinology was consulted in order to assist in the management of diabetes. PAST MEDICAL HISTORY: 1. Type 2 diabetes. 2. Hypertension. 3. BPH. REVIEW OF SYSTEMS: As per HPI. FAMILY HISTORY: Noncontributory. SOCIAL HISTORY: From long-term. No smoking, alcohol, or drug use. ALLERGIES TO MEDICATIONS: None. MEDICATIONS: None. LABORATORY VALUES: Sodium 137, potassium 5.3, chloride 102, bicarbonate 20, BUN 60, creatinine 3.8, glucose of 56. Lactate of 3.4. Lipase 124. WBC 9, hemoglobin 10, hematocrit 31, platelet count of 207,000. PHYSICAL EXAMINATION: GENERAL: The patient is arousable. VITAL SIGNS: Blood pressure is 143/70, temperature of 97.7, pulse of 72, respiratory rate of 16. HEENT: Pupils are equal and reactive to light. Sclerae anicteric. NECK: No JVD. HEART: Regular. LUNGS: Clear. ABDOMEN: Positive bowel sounds. EXTREMITIES: Positive for edema. DIAGNOSES: 1. Acute kidney injury. 2. Diabetes with hypoglycemia. 3. Lactic acidosis. DISCUSSION: 1. Discontinue metformin. The patient has elevated creatinine and elevated lactate. 2. Glucose monitoring before meals and at bedtime with low-dose NovoLog coverage. 3. Start infusion with dextrose NS at 60 mL/h. 4. Hypoglycemia protocol in order. 5. Further adjustment according to blood glucose values. 6. Continue to hold Lantus or any of the basal insulin. I will follow the patient during the hospital stay. Thank you, Dr. Goldman, for the courtesy of this consultation. Rayshawn Carlisle M.D. DR: LISA/LISA JOB#: [id number] CC: ARBEN
--- NOTE | 2019-01-14 19:25 | NUR ---
HAND-OFF: Report given to Piedad GONZALEZ.
[2019-01-14 21:00] VITALS: BP 148/74
[2019-01-14] MEDS: Tamsulosin 0.4mg cap ORAL SCH (21:00)
[2019-01-15] VITALS: BP 116/63
[2019-01-15 04:00] VITALS: BP 154/79
[2019-01-15] MEDS: NovoLOG Insulin Flexpen SUBQ SCH ×4 (06:22→21:19)
--- NOTE | 2019-01-15 06:29 | General Progress Note ---
Assessment/Plan Problem List: (1) Abnormal thyroid blood test ICD Codes: R79.89 - Other specified abnormal findings of blood chemistry SNOMED: 691409303, 475787816200611 (2) Distended bladder ICD Codes: N32.89 - Other specified disorders of bladder SNOMED: 46994044 (3) Hydroureteronephrosis ICD Codes: N13.30 - Unspecified hydronephrosis SNOMED: 29209524 (4) Malfunction of Mendez catheter ICD Codes: T83.011A - Breakdown (mechanical) of indwelling urethral catheter, initial encounter SNOMED: 751307587 (5) Persistent hypolycemia (6) Abdominal pain ICD Codes: R10.9 - Unspecified abdominal pain SNOMED: 22626989 (7) Anemia ICD Codes: D64.9 - Anemia, unspecified SNOMED: 398839655 Assessment/Plan no need for basal insulin no recurrence of hypoglycemia continue NISS ac / hs mildly elevated TSH is most likely due to "sick euthyroid" no need for thyroxine repeat thyroid function in 1-2 weeks as OP Subjective Allergies: Coded Allergies: No Known Allergies (Unverified , 01/13/19) All Systems: reviewed and negative except above Subjective events noted Item Value Date Time Bedside Blood Glucose 150 mg/dl H 01/15/19 0622 Bedside Blood Glucose 219 mg/dl H 01/14/19 2104 Bedside Blood Glucose 148 mg/dl H 01/14/19 1749 Bedside Blood Glucose 124 mg/dl H 01/14/19 0641 Bedside Blood Glucose 204 mg/dl H 01/14/19 1344 Objective Last 24 Hour Vital Signs Date Time Temp Pulse Resp B/P (MAP) Pulse Ox O2 Delivery O2 Flow Rate FiO2 01/15/19 04:00 97.9 66 18 154/79 (104) 98 01/15/19 00:00 99.1 66 18 116/63 (80) 98 01/14/19 21:00 Room Air 01/14/19 21:00 99.0 73 18 148/74 (98) 98 01/14/19 18:18 99.4 01/14/19 16:00 100.2 68 18 161/74 (103) 98 01/14/19 12:00 99.4 66 18 146/72 (96) 98 01/14/19 09:00 Room Air 01/14/19 08:00 99.1 72 18 149/65 (93) 100 01/14/19 08:00 81 Intake and Output 01/14/19 01/15/19 19:00 07:00 Intake Total 640 ml 100 ml Output Total 500 ml 2200 ml Balance 140 ml -2100 ml Intake Oral 640 ml 100 ml Output Urine Total 500 ml 2200 ml Laboratory Tests 01/14/19 07:36: White Blood Count 8.8, Red Blood Count 3.45L, Hemoglobin 10.5L, Hematocrit 31.9L , Mean Corpuscular Volume 93, Mean Corpuscular Hemoglobin 30.5, Mean Corpuscular Hemoglobin Concent 32.9, Red Cell Distribution Width 13.5, Platelet Count 207, Mean Platelet Volume 6.6, Neutrophils (%) (Auto) 74.1, Lymphocytes (% ) (Auto) 19.2L, Monocytes (%) (Auto) 4.8, Eosinophils (%) (Auto) 1.4, Basophils (%) (Auto) 0.6, Reticulocyte Count 0.7, Sodium Level 139, Potassium Level 4.6, Chloride Level 105, Carbon Dioxide Level 20L, Anion Gap 14, Blood Urea Nitrogen 47H, Creatinine 3.2H, Estimat Glomerular Filtration Rate , Glucose Level 138H, Calcium Level 8.8, Iron Level 29L, Total Iron Binding Capacity 222L, Percent Iron Saturation 13L, Unsaturated Iron Binding 193, Ferritin 560H, Total Bilirubin 0.4, Aspartate Amino Transf (AST/SGOT) 20, Alanine Aminotransferase ( ALT/SGPT) 15, Alkaline Phosphatase 76, Total Protein 7.0, Albumin 2.6L, Globulin 4.4, Albumin/Globulin Ratio 0.6L, Carcinoembryonic Antigen [Pending], Vitamin B12 Level 408, Folate 14.7, Thyroid Stimulating Hormone (TSH) 3.854H, Free Thyroxine 0.90 01/14/19 09:00: Prothrombin Time 11.5, Prothromb Time International Ratio 1.1, Activated Partial Thromboplast Time 31 Height (Feet): 5 Height (Inches): 6.00 Weight (Pounds): 120 General Appearance: no apparent distress Neck: normal alignment Cardiovascular: normal rate Respiratory/Chest: normal breath sounds Abdomen: normal bowel sounds Objective Current Medications Medications (Trade) Dose Ordered Sig/Joey Route PRN Reason Start Time Stop Time Status Last Admin Dose Admin Acetaminophen (Tylenol) 650 mg Q6H PRN ORAL Mild Pain/Temp > 100.5 01/14/19 17:45 02/13/19 17:44 01/14/19 17:48 Dextrose (Dextrose 50%) 25 ml Q30M PRN IV Hypoglycemia 01/14/19 11:45 02/12/19 16:44 Dextrose (Dextrose 50%) 50 ml Q30M PRN IV Hypoglycemia 01/14/19 11:45 02/12/19 16:44 Insulin Aspart (NovoLOG) BEFORE MEALS AND HS SUBQ 01/14/19 12:00 02/12/19 11:59 01/15/19 06:22 Tamsulosin HCl (Flomax) 0.4 mg BEDTIME ORAL 01/14/19 21:00 02/12/19 20:59 01/14/19 21:00 Rayshawn Carlisle MD Jan 15, 2019 06:29
[2019-01-15 06:58] LABS: EOSINOPHILS % (AUTO) 2.4 % (0.0-3.0); HEMATOCRIT 30.6 % (42.0-52.0); HEMOGLOBIN 10.3 G/DL (14.2-18.0); LYMPHOCYTES % (AUTO) 32.7 % (20.0-45.0); MEAN CORPUSCULAR VOLUME 89 FL (80-99); MONOCYTES % (AUTO) 7.8 % (1.0-10.0); NEUTROPHILS % (AUTO) 56.1 % (45.0-75.0); PLATELET COUNT 209 K/UL (150-450); RED BLOOD COUNT 3.42 M/UL (4.70-6.10); RED CELL DISTRIBUTION WIDTH 13.1 % (11.6-14.8); WHITE BLOOD COUNT 7.7 K/UL (4.8-10.8)
[2019-01-15 07:23] LABS: ANION GAP 12 mmol/L (5-15); BLOOD UREA NITROGEN 46 mg/dL (7-18); CALCIUM 8.3 MG/DL (8.5-10.1); CARBON DIOXIDE 21 MMOL/L (21-32); CHLORIDE 104 MMOL/L (98-107); CREATININE 2.5 MG/DL (0.55-1.30); POTASSIUM 4.8 MMOL/L (3.5-5.1); SODIUM 137 MMOL/L (136-145)
--- NOTE | 2019-01-15 07:47 | NUR ---
HAND OFF:REPORT GIVEN TO
--- NOTE | 2019-01-15 07:48 | NUR ---
NURSE NOTES: Pt awake, German speaker, able to verbalize known needs. Introduced to call light, and function. Current plan of care will be followed
[2019-01-15 08:03] VITALS: BP 153/75
--- NOTE | 2019-01-15 08:40 | Pulmonology Progress Note ---
Assessment/Plan Assessment/Plan 1. Renal failure. 2. History of BPH. 3. Malpositioned Herrera. Now replaced; draining well. 4. Hypoglycemia. Corrected; off Lantus and metformin 5. Diabetes mellitus. 6. Hypertension. 7. Dementia. 8. Hyperlipidemia. DISCUSSION: DC home Leave new herrera in place; attach leg bag No Lantus or Glucophage SNF Subjective Interval Events: No new complaints; tolerwting diet; off IV fluids; sugars OK HEENT: Repors: no symptoms Respiratory: Reports: no symptoms Cardiovascular: Reports: no symptoms Gastrointestinal/Abdominal: Reports: no symptoms Neurologic: Reports: no symptoms Psychiatric: Reports: no symptoms Allergies: Coded Allergies: No Known Allergies (Unverified , 01/13/19) Objective Last 24 Hour Vital Signs Date Time Temp Pulse Resp B/P (MAP) Pulse Ox O2 Delivery O2 Flow Rate FiO2 01/15/19 08:03 98.1 74 19 153/75 (101) 99 01/15/19 04:00 97.9 66 18 154/79 (104) 98 01/15/19 00:00 99.1 66 18 116/63 (80) 98 01/14/19 21:00 Room Air 01/14/19 21:00 99.0 73 18 148/74 (98) 98 01/14/19 18:18 99.4 01/14/19 16:00 100.2 68 18 161/74 (103) 98 01/14/19 12:00 99.4 66 18 146/72 (96) 98 01/14/19 09:00 Room Air Intake and Output 01/14/19 01/15/19 19:00 07:00 Intake Total 640 ml 100 ml Output Total 500 ml 2200 ml Balance 140 ml -2100 ml Intake Oral 640 ml 100 ml Output Urine Total 500 ml 2200 ml HEENT: normocephalic Respiratory/Chest: chest wall non-tender Abdomen: normal bowel sounds Microbiology Date/Time Source Procedure Growth Status 01/13/19 10:30 Blood Blood Culture - Preliminary NO GROWTH AFTER 24 HOURS Resulted 01/13/19 10:15 Blood Blood Culture - Preliminary NO GROWTH AFTER 24 HOURS Resulted 01/13/19 10:15 Urine,Clean Catch Urine Culture - Preliminary Streptococcus Species Resulted Laboratory Tests 01/14/19 09:00: Prothrombin Time 11.5, Prothromb Time International Ratio 1.1, Activated Partial Thromboplast Time 31 01/15/19 06:25: White Blood Count 7.7, Red Blood Count 3.42L, Hemoglobin 10.3L, Hematocrit 30.6L , Mean Corpuscular Volume 89, Mean Corpuscular Hemoglobin 30.1, Mean Corpuscular Hemoglobin Concent 33.7, Red Cell Distribution Width 13.1, Platelet Count 209, Mean Platelet Volume 6.6, Neutrophils (%) (Auto) 56.1, Lymphocytes (% ) (Auto) 32.7, Monocytes (%) (Auto) 7.8, Eosinophils (%) (Auto) 2.4, Basophils ( %) (Auto) 1.0, Sodium Level 137, Potassium Level 4.8, Chloride Level 104, Carbon Dioxide Level 21, Anion Gap 12, Blood Urea Nitrogen 46H, Creatinine 2.5H , Estimat Glomerular Filtration Rate , Glucose Level 148H, Calcium Level 8.3L Current Medications Medications (Trade) Dose Ordered Sig/Joey Route PRN Reason Start Time Stop Time Status Last Admin Dose Admin Acetaminophen (Tylenol) 650 mg Q6H PRN ORAL Mild Pain/Temp > 100.5 01/14/19 17:45 02/13/19 17:44 01/14/19 17:48 Dextrose (Dextrose 50%) 25 ml Q30M PRN IV Hypoglycemia 01/14/19 11:45 02/12/19 16:44 Dextrose (Dextrose 50%) 50 ml Q30M PRN IV Hypoglycemia 01/14/19 11:45 02/12/19 16:44 Insulin Aspart (NovoLOG) BEFORE MEALS AND HS SUBQ 01/14/19 12:00 02/12/19 11:59 01/15/19 06:22 Tamsulosin HCl (Flomax) 0.4 mg BEDTIME ORAL 01/14/19 21:00 02/12/19 20:59 01/14/19 21:00 Hilario Goldman MD Jan 15, 2019 08:40
--- NOTE | 2019-01-15 10:33 | GI Progress Note ---
Assessment/Plan Problems: (1) Malfunction of Mendez catheter ICD Codes: T83.011A - Breakdown (mechanical) of indwelling urethral catheter, initial encounter SNOMED: 748292650 (2) Hydroureteronephrosis ICD Codes: N13.30 - Unspecified hydronephrosis SNOMED: 96793098 (3) Abdominal pain ICD Codes: R10.9 - Unspecified abdominal pain SNOMED: 69333281 (4) Distended bladder ICD Codes: N32.89 - Other specified disorders of bladder SNOMED: 77050494 (5) Anemia ICD Codes: D64.9 - Anemia, unspecified SNOMED: 118581479 Status: stable Status Narrative Discussed with Dr. Gonzalez Assessment/Plan Mendez catheter replaced, with 1.8 L of output advance renal diet anemia work up >> has low iron saturation, but will hold Venofer due to elevated ferritin levels OB stool r/o GI bleed monitor H&H, prn transfusions bowel regime ppi fu labs Outpatient GI procedures The patient was seen and examined at bedside and all new and available data was reviewed in the patients chart. I agree with the above findings, impression and plan. (Patient seen earlier today. Signature stamp does not reflect patient encounter time.). - Guanakito Gonzalez MD Subjective Subjective Abdominal pain and abdominal distention resolved Objective Last 24 Hour Vital Signs Date Time Temp Pulse Resp B/P (MAP) Pulse Ox O2 Delivery O2 Flow Rate FiO2 01/15/19 08:03 98.1 74 19 153/75 (101) 99 01/15/19 04:00 97.9 66 18 154/79 (104) 98 01/15/19 00:00 99.1 66 18 116/63 (80) 98 01/14/19 21:00 Room Air 01/14/19 21:00 99.0 73 18 148/74 (98) 98 01/14/19 18:18 99.4 01/14/19 16:00 100.2 68 18 161/74 (103) 98 01/14/19 12:00 99.4 66 18 146/72 (96) 98 Intake and Output 01/14/19 01/15/19 19:00 07:00 Intake Total 640 ml 100 ml Output Total 500 ml 2200 ml Balance 140 ml -2100 ml Intake Oral 640 ml 100 ml Output Urine Total 500 ml 2200 ml Laboratory Tests Test 01/15/19 06:25 White Blood Count 7.7 K/UL (4.8-10.8) Red Blood Count 3.42 M/UL (4.70-6.10) L Hemoglobin 10.3 G/DL (14.2-18.0) L Hematocrit 30.6 % (42.0-52.0) L Mean Corpuscular Volume 89 FL (80-99) Mean Corpuscular Hemoglobin 30.1 PG (27.0-31.0) Mean Corpuscular Hemoglobin Concent 33.7 G/DL (32.0-36.0) Red Cell Distribution Width 13.1 % (11.6-14.8) Platelet Count 209 K/UL (150-450) Mean Platelet Volume 6.6 FL (6.5-10.1) Neutrophils (%) (Auto) 56.1 % (45.0-75.0) Lymphocytes (%) (Auto) 32.7 % (20.0-45.0) Monocytes (%) (Auto) 7.8 % (1.0-10.0) Eosinophils (%) (Auto) 2.4 % (0.0-3.0) Basophils (%) (Auto) 1.0 % (0.0-2.0) Sodium Level 137 MMOL/L (136-145) Potassium Level 4.8 MMOL/L (3.5-5.1) Chloride Level 104 MMOL/L (98-107) Carbon Dioxide Level 21 MMOL/L (21-32) Anion Gap 12 mmol/L (5-15) Blood Urea Nitrogen 46 mg/dL (7-18) H Creatinine 2.5 MG/DL (0.55-1.30) H Estimat Glomerular Filtration Rate mL/min (>60) Glucose Level 148 MG/DL (74-106) H Calcium Level 8.3 MG/DL (8.5-10.1) L Height (Feet): 5 Height (Inches): 6.00 Weight (Pounds): 115 General Appearance: WD/WN, no apparent distress, alert Cardiovascular: normal rate Respiratory/Chest: normal breath sounds, no respiratory distress Abdominal Exam: normal bowel sounds, non tender, soft Extremities: non-tender Objective Mendez draining well Evelio Matias SLICING MACHINE OPERATOR Jan 15, 2019 10:33
[2019-01-15 12:00] VITALS: BP 152/79
[2019-01-15] MEDS: Docusate 100mg cap ORAL SCH ×2 (12:36→17:56)
--- NOTE | 2019-01-15 13:28 | NUR ---
NURSE NOTES: Pt has occult stool pending unable to collect , pt has not had a bowel movement yet
--- NOTE | 2019-01-15 14:11 | Surgery Progress Note ---
Surgery Progress Note Subjective Additional Comments doing much better. no n/v/f/c. pain resolved. Objective Last 24 Hour Vital Signs Date Time Temp Pulse Resp B/P (MAP) Pulse Ox O2 Delivery O2 Flow Rate FiO2 01/15/19 12:00 98.1 89 152/79 (103) 01/15/19 09:00 Room Air 01/15/19 08:03 98.1 74 19 153/75 (101) 99 01/15/19 04:00 97.9 66 18 154/79 (104) 98 01/15/19 00:00 99.1 66 18 116/63 (80) 98 01/14/19 21:00 Room Air 01/14/19 21:00 99.0 73 18 148/74 (98) 98 01/14/19 18:18 99.4 01/14/19 16:00 100.2 68 18 161/74 (103) 98 I&O Intake and Output 01/14/19 01/15/19 19:00 07:00 Intake Total 640 ml 100 ml Output Total 500 ml 2200 ml Balance 140 ml -2100 ml Intake Oral 640 ml 100 ml Output Urine Total 500 ml 2200 ml Drains: none Cardiovascular: RSR Respiratory: clear Abdomen: soft, non-tender, present bowel sounds, non-distended Extremities: no cyanosis Laboratory Tests Test 01/15/19 06:25 White Blood Count 7.7 K/UL (4.8-10.8) Red Blood Count 3.42 M/UL (4.70-6.10) L Hemoglobin 10.3 G/DL (14.2-18.0) L Hematocrit 30.6 % (42.0-52.0) L Mean Corpuscular Volume 89 FL (80-99) Mean Corpuscular Hemoglobin 30.1 PG (27.0-31.0) Mean Corpuscular Hemoglobin Concent 33.7 G/DL (32.0-36.0) Red Cell Distribution Width 13.1 % (11.6-14.8) Platelet Count 209 K/UL (150-450) Mean Platelet Volume 6.6 FL (6.5-10.1) Neutrophils (%) (Auto) 56.1 % (45.0-75.0) Lymphocytes (%) (Auto) 32.7 % (20.0-45.0) Monocytes (%) (Auto) 7.8 % (1.0-10.0) Eosinophils (%) (Auto) 2.4 % (0.0-3.0) Basophils (%) (Auto) 1.0 % (0.0-2.0) Sodium Level 137 MMOL/L (136-145) Potassium Level 4.8 MMOL/L (3.5-5.1) Chloride Level 104 MMOL/L (98-107) Carbon Dioxide Level 21 MMOL/L (21-32) Anion Gap 12 mmol/L (5-15) Blood Urea Nitrogen 46 mg/dL (7-18) H Creatinine 2.5 MG/DL (0.55-1.30) H Estimat Glomerular Filtration Rate mL/min (>60) Glucose Level 148 MG/DL (74-106) H Calcium Level 8.3 MG/DL (8.5-10.1) L Plan Problems: (1) Abdominal pain Assessment & Plan: abd pain with large pelvic mass. herrera changed and resolved. CT noted. malpositioned foloy cath now resolved exam benign now after herrera changed. diet as tolerated activity as tolerated keep herrera in d/c planning will follow with recs thank you (2) Distended bladder Jonn Gonzalez Jan 15, 2019 14:11
--- NOTE | 2019-01-15 14:32 | NUR ---
ST NOTE: BEDSIDE SWALLOW EVAL RECEIVED BEDSIDE SWALLOW EVAL ORDER CHART REVIEWED PRIOR THE EVALUATION PT IS A 78-YEAR-OLD DANISH-SPEAKING MALE WHO WAS ADMITTED DUE TO HYPOGLYCEMIA. DYSPHAGIA RISK FACTORS: ?DEMENTIA, DMII, HTN, PROSTATE HYPERTROPHY. PER CXR: LUNGS ARE CLEAR PER CHEST/ABDOMEN CT: PATCHY BASILAR INFILTRATE AT THE LUNG BASE SUSPICIOUS FOR PNA. HIATAL HERNIA. PLOF: PT RESIDES AT HOME WITH FAMILY. CURRENT STATUS: PT SEEN AT BEDSIDE DURING LUNCH. ALERT, COOPERATIVE, FOLLOWS DIRECTIONS, ABLE TO FEED SELF, NO RESP DISTRESS WAS NOTED. PER PIECE WORKER, PT TOLERATED BREAKFAST THIS MORNING WITHOUT OVERT S/S OF ASPIRATION. GIVEN PO TRIALS: THIN(CUP-SELF), PUREE(TSP) AND MASTICATED SOLID INITIAL IMPRESSION: MISSING SOME TEETH. SLOW BUT FUNCTIONAL MASTICATION TIME. MIN INCREASED ORAL TRANSIT TIME AND OROPHARYNGEAL TRANSIT TIME FAIR TO GOOD LARYNGEAL ELEVATION, NO OVERT S/S OF ASPIRATION. OVERALL, PT'S SWALLOWING IS FUNCTIONAL. HOWEVER, PER CHEST CT, IT INDICATED THAT PATCHY BASILAR INFILTRATE, PT HAS RISK FOR SILENT ASPIRATION. RECOMMENDATIONS: 1. CONTINUE REGULAR WITH THIN LIQUIDS DIET 2. ASPIRATION/REFLUX PRECAUTIONS WITH SUPERVISION 3. VIDEOSWALLOW STUDY IP OR OP(DO NOT HOLD UP THE DISCHARGE). D/W THE STAFF
[2019-01-15 16:00] VITALS: BP 147/81
--- NOTE | 2019-01-15 18:19 | NUR ---
CASE MANAGEMENT:REVIEW 01/15/19 SI: HYDROURETERONEPHROSIS ABD PAIN. ANEMIA. MALFUNCTION BEAZ T 98.1 HR 76 RR 17 B/P 147/81 SATS 96% ON RA BUN 46 CR 2.5 GLU 148 CA 8.3 IS: SS INSULIN AC+HS FLOMAX PO QHS : MED/SURG STATUS DCP: PATIENT IS FROM HOME
--- NOTE | 2019-01-15 19:12 | NUR ---
NURSE NOTES: Pt has pending discharge sister was here earlier in shift, and stated she was not ready to take pt home. Primary Md was called who stated to phone case management. Per sister statement pt does not ambulate well and requires a cane. Pt will discharged with home with his sister, with folley catheter. Pt teaching provided for herrera tubing and signs and symptoms of urinary retention
--- NOTE | 2019-01-15 19:30 | NUR ---
NURSE NOTES: Received patient on bed awake, no s/s of ay distress, denies any pain. IV line patent and intact, bed in low position and locked, call light within reach, will continue to monitor. Addendum: 01/15/19 at 1959 by Lan Casper RN NURSE NOTES: FC intact and draining to gravity.
[2019-01-15 20:00] VITALS: BP 145/79
--- NOTE | 2019-01-15 20:08 | NUR ---
NURSE NOTES: Discharge packet complete. New iv site place don rt forearm 22 gauge
[2019-01-15] MEDS: Tamsulosin 0.4mg cap ORAL SCH (20:50)
[2019-01-15] MEDS ORDERED: Miralax 17gm pkt ORAL SCH (21:00)
[2019-01-16] VITALS: BP 142/74
[2019-01-16 04:00] VITALS: BP 146/81
[2019-01-16] MEDS: NovoLOG Insulin Flexpen SUBQ SCH (05:57)
[2019-01-16 07:17] LABS: BASOPHILS % (AUTO) 0.4 % (0.0-2.0); EOSINOPHILS % (AUTO) 1.2 % (0.0-3.0); HEMOGLOBIN 10.7 G/DL (14.2-18.0); LYMPHOCYTES % (AUTO) 18.3 % (20.0-45.0); MEAN CORPUSCULAR VOLUME 90 FL (80-99); MONOCYTES % (AUTO) 6.1 % (1.0-10.0); NEUTROPHILS % (AUTO) 73.9 % (45.0-75.0); PLATELET COUNT 225 K/UL (150-450); RED BLOOD COUNT 3.54 M/UL (4.70-6.10)
[2019-01-16 07:21] LABS: ANION GAP 14 mmol/L (5-15); BLOOD UREA NITROGEN 46 mg/dL (7-18); CALCIUM 8.5 MG/DL (8.5-10.1); CARBON DIOXIDE 19 MMOL/L (21-32); CHLORIDE 103 MMOL/L (98-107); CREATININE 2.3 MG/DL (0.55-1.30); POTASSIUM 4.8 MMOL/L (3.5-5.1); SODIUM 136 MMOL/L (136-145)
--- NOTE | 2019-01-16 07:23 | NUR ---
HAND-OFF: Report given to Ngoc GONZALEZ.
--- NOTE | 2019-01-16 07:38 | NUR ---
NURSE NOTES: Pt awake eating breakfast. IV line remains in place, patent, no signs of infiltration. Pt has pending discharge for home.
[2019-01-16 08:00] VITALS: BP 152/88
[2019-01-16] MEDS: Docusate 100mg cap ORAL SCH (08:51)
[2019-01-16] MEDS ORDERED: Levemir Flexpen SUBQ SCH (09:00)
--- NOTE | 2019-01-16 09:40 | Pulmonology Progress Note ---
Assessment/Plan Assessment/Plan 1. Renal failure. 2. History of BPH. 3. Malpositioned Herrera. Now replaced; draining well. 4. Hypoglycemia. Corrected; off Lantus and metformin 5. Diabetes mellitus. 6. Hypertension. 7. Dementia. 8. Hyperlipidemia. DISCUSSION: DC home Leave new herrera in place; attach leg bag No Lantus or Glucophage Subjective Interval Events: No new events Constitutional: Reports: no symptoms HEENT: Repors: no symptoms Respiratory: Reports: no symptoms Cardiovascular: Reports: no symptoms Gastrointestinal/Abdominal: Reports: no symptoms Allergies: Coded Allergies: No Known Allergies (Unverified , 01/13/19) Objective Last 24 Hour Vital Signs Date Time Temp Pulse Resp B/P (MAP) Pulse Ox O2 Delivery O2 Flow Rate FiO2 01/16/19 04:00 97.8 94 18 146/81 (102) 97 01/16/19 00:00 97.9 81 18 142/74 (96) 97 01/15/19 21:00 Room Air 01/15/19 20:00 97.3 62 18 145/79 (101) 99 01/15/19 16:00 98.1 76 17 147/81 (103) 96 01/15/19 12:00 98.1 89 152/79 (103) Intake and Output 01/15/19 01/16/19 19:00 07:00 Intake Total 800 ml 240 ml Output Total 1200 ml 1400 ml Balance -400 ml -1160 ml Intake Oral 240 ml Other 800 ml Output Urine Total 1200 ml 1400 ml # Bowel Movements 1 General Appearance: no acute distress HEENT: normocephalic Respiratory/Chest: chest wall non-tender, lungs clear Cardiovascular: normal peripheral pulses Abdomen: normal bowel sounds, soft, non tender Microbiology Date/Time Source Procedure Growth Status 01/13/19 10:30 Blood Blood Culture - Preliminary NO GROWTH AFTER 48 HOURS Resulted 01/13/19 10:15 Blood Blood Culture - Preliminary NO GROWTH AFTER 48 HOURS Resulted 01/13/19 10:15 Urine,Clean Catch Urine Culture - Preliminary Enterococcus Faecalis Enterococcus Faecium Resulted Laboratory Tests 01/16/19 06:20: White Blood Count 8.0, Red Blood Count 3.54L, Hemoglobin 10.7L, Hematocrit 32.0L , Mean Corpuscular Volume 90, Mean Corpuscular Hemoglobin 30.2, Mean Corpuscular Hemoglobin Concent 33.5, Red Cell Distribution Width 13.0, Platelet Count 225, Mean Platelet Volume 6.4L, Neutrophils (%) (Auto) 73.9, Lymphocytes ( %) (Auto) 18.3L, Monocytes (%) (Auto) 6.1, Eosinophils (%) (Auto) 1.2, Basophils (%) (Auto) 0.4, Sodium Level 136, Potassium Level 4.8, Chloride Level 103, Carbon Dioxide Level 19L, Anion Gap 14, Blood Urea Nitrogen 46H, Creatinine 2.3H, Estimat Glomerular Filtration Rate , Glucose Level 207H, Calcium Level 8.5 Current Medications Medications (Trade) Dose Ordered Sig/Joey Route PRN Reason Start Time Stop Time Status Last Admin Dose Admin Acetaminophen (Tylenol) 650 mg Q6H PRN ORAL Mild Pain/Temp > 100.5 01/14/19 17:45 02/13/19 17:44 01/14/19 17:48 Dextrose (Dextrose 50%) 25 ml Q30M PRN IV Hypoglycemia 01/16/19 06:45 02/15/19 06:44 Dextrose (Dextrose 50%) 50 ml Q30M PRN IV Hypoglycemia 01/16/19 06:45 02/15/19 06:44 Docusate Sodium (Colace) 100 mg THREE TIMES A DAY ORAL 01/15/19 13:00 02/14/19 12:59 01/16/19 08:51 Insulin Aspart (NovoLOG) BEFORE MEALS AND HS SUBQ 01/14/19 12:00 02/12/19 11:59 01/16/19 05:57 Insulin Detemir (Levemir) 10 units DAILY SUBQ 01/16/19 09:00 02/15/19 08:59 01/16/19 08:56 Polyethylene Glycol (Miralax) 17 gm BEDTIME ORAL 01/15/19 21:00 02/14/19 20:59 01/15/19 20:50 Tamsulosin HCl (Flomax) 0.4 mg BEDTIME ORAL 01/14/19 21:00 02/12/19 20:59 01/15/19 20:50 Hilario Goldman MD Jan 16, 2019 09:40
--- NOTE | 2019-01-16 11:04 | NUR ---
NURSE NOTES: Pt awaiting transportation for discharge home. Sister is accompanied her brother who resides with her. Discharge packet provided to include meals for diabetics, food choices . Education provided , for [facility] care, signs and symptoms of urinary retention. Verbalized understanding. Teaching provided to his sister which is his caregiver. F/C remains functioning. leg bag provided. All belongings given. Stable condition at this time
--- NOTE | 2019-01-16 11:20 | GI Progress Note ---
Assessment/Plan Problems: (1) Malfunction of Mendez catheter ICD Codes: T83.011A - Breakdown (mechanical) of indwelling urethral catheter, initial encounter SNOMED: 343075795 (2) Hydroureteronephrosis ICD Codes: N13.30 - Unspecified hydronephrosis SNOMED: 38926493 (3) Abdominal pain ICD Codes: R10.9 - Unspecified abdominal pain SNOMED: 19013354 (4) Distended bladder ICD Codes: N32.89 - Other specified disorders of bladder SNOMED: 09975872 (5) Anemia ICD Codes: D64.9 - Anemia, unspecified SNOMED: 605561570 Status: stable Status Narrative Discussed with Dr. Gonzalez. Assessment/Plan Mendez catheter replaced, with 1.8 L of output advance renal diet anemia work up >> has low iron saturation, but will hold Venofer due to elevated ferritin levels OB stool r/o GI bleed monitor H&H, prn transfusions bowel regime ppi fu labs Outpatient GI procedures The patient was seen and examined at bedside and all new and available data was reviewed in the patients chart. I agree with the above findings, impression and plan. (Patient seen earlier today. Signature stamp does not reflect patient encounter time.). - Guanakito Gonzalez MD Subjective Subjective Abdominal pain and abdominal distention resolved Objective Last 24 Hour Vital Signs Date Time Temp Pulse Resp B/P (MAP) Pulse Ox O2 Delivery O2 Flow Rate FiO2 01/16/19 09:00 Room Air 01/16/19 08:00 98.2 104 19 152/88 (109) 99 01/16/19 04:00 97.8 94 18 146/81 (102) 97 01/16/19 00:00 97.9 81 18 142/74 (96) 97 01/15/19 21:00 Room Air 01/15/19 20:00 97.3 62 18 145/79 (101) 99 01/15/19 16:00 98.1 76 17 147/81 (103) 96 01/15/19 12:00 98.1 89 152/79 (103) Intake and Output 01/15/19 01/16/19 19:00 07:00 Intake Total 800 ml 240 ml Output Total 1200 ml 1400 ml Balance -400 ml -1160 ml Intake Oral 240 ml Other 800 ml Output Urine Total 1200 ml 1400 ml # Bowel Movements 1 Laboratory Tests Test 01/16/19 06:20 White Blood Count 8.0 K/UL (4.8-10.8) Red Blood Count 3.54 M/UL (4.70-6.10) L Hemoglobin 10.7 G/DL (14.2-18.0) L Hematocrit 32.0 % (42.0-52.0) L Mean Corpuscular Volume 90 FL (80-99) Mean Corpuscular Hemoglobin 30.2 PG (27.0-31.0) Mean Corpuscular Hemoglobin Concent 33.5 G/DL (32.0-36.0) Red Cell Distribution Width 13.0 % (11.6-14.8) Platelet Count 225 K/UL (150-450) Mean Platelet Volume 6.4 FL (6.5-10.1) L Neutrophils (%) (Auto) 73.9 % (45.0-75.0) Lymphocytes (%) (Auto) 18.3 % (20.0-45.0) L Monocytes (%) (Auto) 6.1 % (1.0-10.0) Eosinophils (%) (Auto) 1.2 % (0.0-3.0) Basophils (%) (Auto) 0.4 % (0.0-2.0) Sodium Level 136 MMOL/L (136-145) Potassium Level 4.8 MMOL/L (3.5-5.1) Chloride Level 103 MMOL/L (98-107) Carbon Dioxide Level 19 MMOL/L (21-32) L Anion Gap 14 mmol/L (5-15) Blood Urea Nitrogen 46 mg/dL (7-18) H Creatinine 2.3 MG/DL (0.55-1.30) H Estimat Glomerular Filtration Rate mL/min (>60) Glucose Level 207 MG/DL (74-106) H Calcium Level 8.5 MG/DL (8.5-10.1) Height (Feet): 5 Height (Inches): 6.00 Weight (Pounds): 115 General Appearance: WD/WN, no apparent distress, alert, thin Cardiovascular: normal rate Respiratory/Chest: normal breath sounds, no respiratory distress Abdominal Exam: normal bowel sounds, non tender, soft Extremities: non-tender Objective Mendez draining well Evelio Matias DIRECTOR OF [employer] Jan 16, 2019 11:20
--- NOTE | 2019-01-17 13:20 | Discharge Summary ---
Discharge Summary Discharge Summary _ DATE OF ADMISSION: 01/13/2019 DATE OF DISCHARGE: 01/16/2019 DISCHARGED BY: Dr. Norma Goldman CONSULTANTS: Dr. Dewey Carlisle BRIEF HOSPITAL COURSE: Patient is an 78-year-old male, admitted to the hospital with hypoglycemia. The patient was unable to provide any clear history. From medical records, patient was seen at [facility] on November reports that he may need a colostomy bag. The patient has a history of diabetes mellitus, hypertension, BPH, and hyperlipidemia. He has chronic colostomy/chronic urinary bag. He was then discharged home. Per welding machine operator gas metal arc report, patient was transported from his home due to altered level of consciousness. Patient was found on a couch. His blood sugar was running low. He was then transported to [facility]. On evaluation of the ED, blood pressure was elevated to 187/87, pulse rate 74. Patient's initial glucose was 80. Blood work showed WBC of 9, hemoglobin 10, hematocrit 31. Potassium was elevated to 5.3. BUN 60, creatinine 3.8. Lactic acid 2.4. Troponin negative. Chest x-ray did not show any any acute findings. CT of the abdomen and pelvis showed bladder outlet obstruction due to malposition Mendez catheter and prostate hypertrophy. There was associated moderate hydroureteronephrosis and patchy basilar infiltrates. He was then admitted for evaluation of renal failure, malpositioned Mendez, and hypoglycemia. He was given IV dextrose. Oral hypoglycemics was placed on hold. Patient was on metformin and Lantus as outpatient. Home Child Care Provider was consulted. Metformin was discontinued due to elevated creatinine and lactate. He was placed on low-dose NovoLog coverage. Basal insulin was placed on hold. Noted to have mildly elevated TSH, most likely due to "sick euthyroid". No need for thyroxine. He was advised to repeat thyroid function in 1-2 weeks as outpatient. Surgeon and GI were called to evaluate pelvic mass. Patient had malpositioned Mendez catheter and distended bladder. Mendez catheter was changed. Kidney function down trended. Anemia workup showed elevated Ferritin levels. Venofer was placed on hold. Blood glucose was stable. Patient was off Lantus. No need for basal insulin. He was eventually discharged home. FINAL DIAGNOSES: Acute renal failure due to malpositioned Mendez catheter BPH Malposition Mendez, replaced Hypoglycemia, corrected Diabetes mellitus hypertension dementia Hyperlipidemia Hydroureteronephrosis/ obstructive uropathy due to malpositioned Mendez catheter Distended bladder Anemia DISPOSITION: Patient was discharged home. DISCHARGE MEDICATIONS: Refer to Discharge Medication List. DISCHARGE INSTRUCTIONS: Follow-up in a week. I have been assigned to complete a discharge summary on this account, I was not involved with the patient's management. Marah Flores NP Jan 17, 2019 13:20
== END 2019-01-16 11:53 | disposition home or self-care (01) | DRG 638 ==
LOC: EDBD 10:15 → EDBEDREQ 10:39 → EDBEDREQSVC 10:39 → EMR 10:40 → 2E 11:07 → EDBEDREQ 12:47 → 2E 22:59 → 4E 01-14 11:44
DX: E11.649 Type 2 diabetes mellitus with hypoglycemia without coma (principal); N13.39 Other hydronephrosis; N17.9 Acute kidney failure, unspecified; T83.021A Displacement of indwelling urethral catheter, initial encounter; Y84.6 Urinary catheterization as the cause of abnormal reaction of the patient, or of later complication, without mention of misadventure at the time of the procedure; N40.0 Benign prostatic hyperplasia without lower urinary tract symptoms; I10 Essential (primary) hypertension; F03.90 Unspecified dementia, unspecified severity, without behavioral disturbance, psychotic disturbance, mood disturbance, and anxiety; E78.5 Hyperlipidemia, unspecified; D64.9 Anemia, unspecified; N32.89 Other specified disorders of bladder; Z79.4 Long term (current) use of insulin; E07.81 Sick-euthyroid syndrome; N32.0 Bladder-neck obstruction
CPT/HCPCS: 36415; 71045; 74176; 80048; 80053; 81003; 82378; 82550; 82553; 82607; 82728; 82746; 82962; 83540; 83550; 83605; 83690; 84439; 84443; 84484; 85007; 85025; 85044; 85610; 85730; 87040; 87086; 87181; 93005; 96365; 96374; 99285; J1815; S5561

== ENCOUNTER 2019-02-04 09:32 | Inpatient (IN) | payer MEDICARE, MEDICAID ==
[~2019-02-04] VITALS: Ht 165.1 cm; Wt 52.6 kg
[~2019-02-04 09:32] MED LIST: AVODART0.5 MG ORAL; LANTUS SOL100 UNIT/1 SUBQ; LOSARTAN POTASS25 M1 PO; METFORMIN HCL500 M1 ORAL; TAMSULOSIN HCL0.4 MG ORAL
--- NOTE | 2019-02-04 09:35 | NUR ---
ED Nurse Note: Pt BIBA from home due to bleeding in the penile area. EMS stated that the home health nurse noted blood in his herrera catheter bag yesterday and when she came back today and removed the herrera catheter, blood started to " spurt out" at the area. Hx of DM and BPH. Rating the pain in the groin area an 8/10. Non radiating. A + O x4. Ambulatory. Skin warm to touch.
[2019-02-04 09:37] VITALS: BP 172/82
--- NOTE | 2019-02-04 09:39 | NUR ---
ED Nurse Note: Abdominal pad and towel noted in pt's diaper to apply pressure to the area to stop bleeding. Area not actively bleeding.
[2019-02-04] MEDS ORDERED: METFORMIN HCL500 M1 ORAL (10:05)
--- NOTE | 2019-02-04 10:19 | NUR ---
ED Nurse Note: As herrera catheter w/ 12Fr caude tip, penile area started to actively bleed bright red blood. Notified ERMD. Abdominal pad and towel placed in the area to stop bleeding. Will continue to monitor.
[2019-02-04 10:39] LABS: ANION GAP 14 mmol/L (5-15); BLOOD UREA NITROGEN 46 mg/dL (7-18); CALCIUM 9.3 MG/DL (8.5-10.1); CARBON DIOXIDE 22 MMOL/L (21-32); CHLORIDE 99 MMOL/L (98-107); POTASSIUM 5.4 MMOL/L (3.5-5.1); SODIUM 135 MMOL/L (136-145)
[2019-02-04 10:41] LABS: APPEARANCE,URINE CLOUDY; BILIRUBIN, URINE NEGATIVE (NEGATIVE); COLOR,URINE PALE YELLOW; GLUCOSE, URINE (UA) 2+ (NEGATIVE); KETONES,URINE NEGATIVE (NEGATIVE); LEUKOCYTE ESTERASE ,URINE 3+ (NEGATIVE); NITRITE,URINE NEGATIVE (NEGATIVE); PH,URINE 5 (4.5-8.0); PROTEIN,URINE 2+ (NEGATIVE); UROBILINOGEN,URINE NORMAL MG/DL (0.0-1.0)
[2019-02-04 10:42] LABS: HEMATOCRIT 34.6 % (42.0-52.0); HEMOGLOBIN 11.6 G/DL (14.2-18.0); MEAN CORPUSCULAR VOLUME 91 FL (80-99); PLATELET COUNT 224 K/UL (150-450); RED BLOOD COUNT 3.82 M/UL (4.70-6.10); RED CELL DISTRIBUTION WIDTH 14.4 % (11.6-14.8); WHITE BLOOD COUNT 18.3 K/UL (4.8-10.8)
[2019-02-04 10:44] LABS: ALANINE AMINOTRANSFERASE 13 U/L (12-78); ALBUMIN 3.3 G/DL (3.4-5.0); ALBUMIN/GLOBULIN RATIO 0.7 (1.0-2.7); ALKALINE PHOSPHATASE 75 U/L (46-116); ASPARTATE AMINO TRANSFERASE 15 U/L (15-37); BILIRUBIN,TOTAL 0.6 MG/DL (0.2-1.0)
[2019-02-04 11:43] VITALS: BP 134/71
[2019-02-04 13:56] VITALS: BP 138/66
--- NOTE | 2019-02-04 13:59 | Emergency Room Report ---
History of Present Illness General Chief Complaint: Male Urogenital Problems Source: Patient Present Illness HPI 79-year-old male presents evaluation. Coming from home for hematuria. Per EMS patient has home health nurse which noted patient having blood in his Mendez catheter today. Nurse pulled out Mendez catheter and lots of blood came out as per nurse. Patient is here for evaluation. Upon arrival there is bleeding from the urethral meatus. Denies pain. Denies fevers or chills. Denies taking blood thinners. No other aggravating relieving factors. Denies any other associated symptoms Allergies: Coded Allergies: No Known Allergies (Unverified , 01/13/19) Patient History Past Medical History: DM, HTN Past Surgical History: none Pertinent Family History: none Social History: Denies: smoking, alcohol use, drug use Immunizations: UTD Reviewed Nursing Documentation: PMH: Agreed; PSxH: Agreed Nursing Documentation-PMH Hx Hypertension: Yes Hx Diabetes: Yes Hx Cancer: No Hx Gastrointestinal Problems: No Hx Neurological Problems: No Review of Systems All Other Systems: negative except mentioned in HPI Physical Exam Vital Signs Date Time Temp Pulse Resp B/P (MAP) Pulse Ox O2 Delivery O2 Flow Rate FiO2 02/04/19 09:27 98.1 104 16 154/84 98 Room Air Sp02 EP Interpretation: reviewed, normal General Appearance: no apparent distress, alert, GCS 15, non-toxic Head: normocephalic, atraumatic Eyes: bilateral eye normal inspection, bilateral eye PERRL ENT: hearing grossly normal, normal pharynx, no angioedema, normal voice Neck: full range of motion, supple/symm/no masses Respiratory: chest non-tender, lungs clear, normal breath sounds, speaking full sentences Cardiovascular #1: regular rate, rhythm, no edema Cardiovascular #2: 2+ carotid (R), 2+ carotid (L), 2+ radial (R), 2+ radial (L) , 2+ dorsalis pedis (R), 2+ dorsalis pedis (L) Gastrointestinal: normal bowel sounds, non tender, soft, non-distended, no guarding, no rebound Rectal: deferred Genitourinary: normal inspection, no CVA tenderness, other - blood at urethral meatus Musculoskeletal: back normal, gait/station normal, normal range of motion, non- tender Neurologic: alert, oriented x3, responsive, motor strength/tone normal, sensory intact, speech normal Psychiatric: judgement/insight normal, memory normal, mood/affect normal, no suicidal/homicidal ideation Reflexes: 3+ bicep (R), 3+ bicep (L), 3+ tricep (R), 3+ tricep (L), 3+ knee (R) , 3+ knee (L) Skin: normal color, no rash, warm/dry, well hydrated Lymphatic: no adenopathy Medical Decision Making Diagnostic Impression: Primary Impression: Hematuria Qualified Codes: R31.9 - Hematuria, unspecified Additional Impressions: UTI (urinary tract infection) Qualified Codes: N39.0 - Urinary tract infection, site not specified; R31.9 - Hematuria, unspecified Renal insufficiency Hyperkalemia ER Course Hospital Course 79 yo M presents with hematuria. h/o BPH Differential diagnoses include: Coagulopathy, bladder injury, cystitis Clinical course Patient placed on stretcher. On monitoring and evaluation advisor with stable vitals are ED course. After initial history and physical, I examined the urethral meatus and there is bartolo blood noted. Discussed with patient's urologist Dr. Nolasco; he knows patient well and recommended replacing with Mendez catheter and flushing with NS Labs - BUN/Cr elevated, K 5.4, marked leukocytosis, coags ok, hb/hct stable, UA+ bacteria + blood EKG - NSR, no acute ischemic changes interpreted by me Abx given. IV fluids given. Case discussed with Dr Acosta and they agreed to admit patient to their service for further care and support Dr Candelaria will consult on the patient I feel this is a highly complex case requiring extensive working including EKG/ Rhythm strip, Xray/CT/US, Blood/urine lab work, repeat exams while in ED, and administration of strong opiates/narcotics for pain control, admission to hospital or close patient follow up. Diagnosis - UTI, hematuria, renal insufficiency, hyperkalemia Patient admitted to telemetry in serious condition Labs Test 02/04/19 10:15 02/04/19 10:30 02/04/19 10:50 White Blood Count 18.3 K/UL (4.8-10.8) Red Blood Count 3.82 M/UL (4.70-6.10) Hemoglobin 11.6 G/DL (14.2-18.0) Hematocrit 34.6 % (42.0-52.0) Mean Corpuscular Volume 91 FL (80-99) Mean Corpuscular Hemoglobin 30.5 PG (27.0-31.0) Mean Corpuscular Hemoglobin Concent 33.6 G/DL (32.0-36.0) Red Cell Distribution Width 14.4 % (11.6-14.8) Platelet Count 224 K/UL (150-450) Mean Platelet Volume 6.4 FL (6.5-10.1) Neutrophils (%) (Auto) % (45.0-75.0) Lymphocytes (%) (Auto) % (20.0-45.0) Monocytes (%) (Auto) % (1.0-10.0) Eosinophils (%) (Auto) % (0.0-3.0) Basophils (%) (Auto) % (0.0-2.0) Differential Total Cells Counted 100 Neutrophils % (Manual) 89 % (45-75) Lymphocytes % (Manual) 7 % (20-45) Monocytes % (Manual) 4 % (1-10) Eosinophils % (Manual) 0 % (0-3) Basophils % (Manual) 0 % (0-2) Band Neutrophils 0 % (0-8) Platelet Estimate Adequate Platelet Morphology Normal Red Blood Cell Morphology Normal Sodium Level 135 MMOL/L (136-145) Potassium Level 5.4 MMOL/L (3.5-5.1) Chloride Level 99 MMOL/L (98-107) Carbon Dioxide Level 22 MMOL/L (21-32) Anion Gap 14 mmol/L (5-15) Blood Urea Nitrogen 46 mg/dL (7-18) Creatinine 2.0 MG/DL (0.55-1.30) Estimat Glomerular Filtration Rate mL/min (>60) Glucose Level 221 MG/DL (74-106) Calcium Level 9.3 MG/DL (8.5-10.1) Total Bilirubin 0.6 MG/DL (0.2-1.0) Aspartate Amino Transf (AST/SGOT) 15 U/L (15-37) Alanine Aminotransferase (ALT/SGPT) 13 U/L (12-78) Alkaline Phosphatase 75 U/L (46-116) Total Protein 8.1 G/DL (6.4-8.2) Albumin 3.3 G/DL (3.4-5.0) Globulin 4.8 g/dL Albumin/Globulin Ratio 0.7 (1.0-2.7) Lipase 104 U/L (73-393) Urine Color Pale yellow Urine Appearance Cloudy Urine pH 5 (4.5-8.0) Urine Specific [place] 1.010 (1.005-1.035) Urine Protein 2+ (NEGATIVE) Urine Glucose (UA) 2+ (NEGATIVE) Urine Ketones Negative (NEGATIVE) Urine Blood 5+ (NEGATIVE) Urine Nitrite Negative (NEGATIVE) Urine Bilirubin Negative (NEGATIVE) Urine Urobilinogen Normal MG/DL (0.0-1.0) Urine Leukocyte Esterase 3+ (NEGATIVE) Urine RBC 15-20 /HPF (0 - 0) Urine WBC 30-40 /HPF (0 - 0) Urine Squamous Epithelial Cells Few /LPF (NONE/OCC) Urine Bacteria Moderate /HPF (NONE) Prothrombin Time 10.9 SEC (9.30-11.50) Prothromb Time International Ratio 1.0 (0.9-1.1) Activated Partial Thromboplast Time 29 SEC (23-33) EKG Diagnostic Results Rate: normal Rhythm: NSR ST Segments: no acute changes ASA given to the pt in ED: No Rhythm Strip Diag. Results EP Interpretation: yes Rhythm: NSR, no PVC's, no ectopy Last Vital Signs Date Time Temp Pulse Resp B/P (MAP) Pulse Ox O2 Delivery O2 Flow Rate FiO2 02/04/19 11:43 98.1 98 15 134/71 100 Room Air Status: improved Disposition: ADMITTED INPATIENT Condition: Serious Referrals: NOT CHOSEN IPA/,REFERRING (PCP) Leland Young MD Feb 04, 2019 13:59
--- NOTE | 2019-02-04 14:36 | NUR ---
report given to kris chauhan . patient is to be transferd to room 211-2 via acls protocol. patient is awake alert oriented family with patient
--- NOTE | 2019-02-04 14:36 | NUR ---
NURSE NOTES: Received report from Dunia GONZALEZ from ER at the bedside. Alert/oriented. Denies pain. No signs of distress noted. Bed in lowest position locked. Call light within reach. Mendez catheter present with yellow colored urine noted with intact, patent. No hematuria noted. Noted old blood on penis area. IV Left hand 22G with saline lock patent, intact. Family at the bedside. Continue plan of care.
[2019-02-04] MEDS ORDERED: NovoLOG Insulin Flexpen SUBQ SCH ×2 (16:30)
[2019-02-04] MEDS ORDERED: metFORMIN 500mg tab ORAL SCH (16:30)
--- NOTE | 2019-02-04 16:47 | NUR ---
CASE MANAGEMENT: INITIAL REVIEW 79 YO M ROWENA FROM HOME CC: HEMATURIA PMHx: DM. HTN. SI:HEMATURIA. HYPERKALEMIA. UTI. T 98.1 HR 104 RR 16 B/P 154/84 SATS 98% ON RA WBC 18.3 NA 135 K 5.4 BUN 46 CR 2 GLU 221 IS: NS BOLUS X2 CIPRO IV X1 PATIENT ADMITTED TO TELE 02/04/2019 @ 1149 DCP: PATIENT TO BE DISCHARGED TO HOME ONCE MEDICALLY CLEARED. PLAN OF CARE: URO EVAL Addendum: 02/04/19 at 1916 by Ana Kidd CM [employer]
[2019-02-04] MEDS: NovoLOG Insulin Flexpen SUBQ SCH ×2 (17:01→21:41)
--- NOTE | 2019-02-04 19:36 | NUR ---
HAND-OFF: Report given to Pratima GONZALEZ. pt. Remains stable.
[2019-02-04 20:00] VITALS: BP 102/58
[2019-02-04] MEDS ORDERED: cefTRIAXone 1 GM in D5W 55 ML IVPB SCH (20:00)
--- NOTE | 2019-02-04 20:25 | NUR ---
NURSE NOTES: recvd pt. Pt is awake and alert AOX4, Macedonian speaking. He is lying in bed comfortable. IV site is c/d/i and running NS @ 100/hr. Bed in lowest position, bed alarm is not functioning. Advised pt to not get up with out assistance, pt verbalized understanding. Will continue with plan of care.
[2019-02-04] MEDS ORDERED: Tamsulosin 0.4mg cap ORAL SCH (21:00)
--- NOTE | 2019-02-04 21:45 | History and Physical Report ---
DATE OF ADMISSION: 02/04/2019 REASON FOR ADMISSION: 1. Hematuria. 2. Acute kidney injury. 3. Hyperkalemia. HISTORY OF PRESENT ILLNESS: The patient is a pleasant 79-year-old gentleman, who is being evaluated in the emergency room for admission due to new onset recurrent hematuria. The patient has CKD, stage 4 with a baseline creatinine ranging anywhere from 2 to 3.2. It seems that the patient has an indwelling Mendez catheter due to an enlarged prostate. He has had multiple admissions both here and at [facility] due to the same condition of hematuria requiring further evaluation. Catheter in place due to BPH. Family states that he was awaiting possibility of making a decision on surgical intervention versus long-term catheter placement. He does have a home health nurse and the nurse pulled out his Mendez catheter today, was noted to have blood clots coming out and as such he presented to the emergency room with a Mendez catheter replaced and pending evaluation. ALLERGIES: No known drug allergies. PAST MEDICAL HISTORY: 1. CKD, stage 4. 2. Diabetes. 3. Hypertension. PAST SURGICAL HISTORY: None. FAMILY HISTORY: Positive for hypertension and diabetes. SOCIAL HISTORY: No tobacco, alcohol, or illicit drug use REVIEW OF SYSTEMS: NEUROLOGIC: The patient denies headache, change in syncope, presyncopal episodes. CARDIOVASCULAR: No current chest pain, palpitations, or angina. PULMONARY: No difficulty breathing, productive cough or sputum. GASTROINTESTINAL/ GENITOURINARY: The patient having hematuria and blood through penis. MUSCULOSKELETAL: The patient feeling weak, tired and fatigue. LABORATORY AND DIAGNOSTIC DATA: Labs dated February 04, 2019, white cell count 18.3, hemoglobin 11.6, and platelet count 224. Sodium 135, potassium 5.4, BUN 46, creatinine 2, glucose 221. Positive urine for bacteria. INR 1.0. PHYSICAL EXAMINATION: VITAL SIGNS: Blood pressure 136/66, pulse 87, respiratory rate 16, temperature 98.1, 99% oxygen saturation room air. GENERAL: The patient awake, alert, not in distress. HEENT: Extraocular muscles intact. No lymphadenopathy noted. CARDIOVASCULAR: S1 and S2. No rubs or gallops. PULMONARY: Clear to auscultation bilaterally. No rales, rhonchi, or wheeze. ABDOMEN: Nondistended and nontender. EXTREMITIES: No edema. ASSESSMENT AND PLAN: 1. Hematuria secondary to probably Mendez trauma insertion long-term for BPH, pending Urology evaluation on how to proceed versus suprapubic cath or TURP. Defer to Dr. Candelaria from Urology. 2. Hyperkalemia, mild 5.4. We will induce diuresis with small dose Lasix and normal saline. 3. CKD stage 4. Creatinine currently 2. Avoid any nephrotoxins. 4. Diabetes mellitus. The patient on insulin sliding scale and Accu-Cheks. 5. DVT prophylaxis with SCD. 6. UTI- rocephin Shaheen Acosta MD DR: Zenia JOB#: [id number] CC: ARBEN
[2019-02-05] VITALS: BP 116/58
--- NOTE | 2019-02-05 01:15 | Consultation ---
DATE OF CONSULTATION: 02/04/2019 UROLOGY CONSULTATION CONSULTING PHYSICIAN: Dwayne Candelaria M.D. ATTENDING/CONSULTING PHYSICIAN: Shaheen Acosta M.D. CHIEF COMPLAINT AND HISTORY OF PRESENT ILLNESS: I was asked by Dr. Acosta to evaluate this very pleasant 79-year-old gentleman regarding a history of gross hematuria and urinary tract infection. Briefly, the patient was seen in the emergency room with a history of penile bleeding and gross hematuria. The patient apparently has an indwelling Mendez catheter secondary to enlarged prostate. He was admitted for management of the same and evidence of urinary tract infection. He was also found to have hyperkalemia. The patient has chronic renal insufficiency with a creatinine ranging from 2 to 3.2. Catheter was changed and he was started on some antibiotics. Given the above, I was asked to evaluate the patient. PAST MEDICAL HISTORY: 1. 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 2. Chronic kidney disease, stage 4. 3. Diabetes. 4. Hypertension. 5. Hematuria. PAST SURGICAL HISTORY: None. MEDICATIONS: Please see the chart for current medications administration details. Briefly, the patient is receiving ceftriaxone for antibiotic coverage. ALLERGIES: No known drug allergies. SOCIAL HISTORY: Unremarkable for tobacco, alcohol, or drug use. FAMILY HISTORY: Notable for diabetes and hypertension. REVIEW OF SYSTEMS: A 14-system review of systems essentially unremarkable outside of what is described above. PHYSICAL EXAMINATION: GENERAL: The patient is an elderly gentleman, awake, alert, and oriented x4, pleasant, in no obvious distress. HEENT: NC/AT. EOMI. Oropharynx clear. NECK: Supple. Full range of motion. CHEST: Within normal limits. ABDOMEN: Soft, nontender, and nondistended. EXTREMITIES: Warm and well perfused. No cyanosis, clubbing, or edema. BACK: No CVA tenderness to percussion. NEUROLOGIC: Grossly nonfocal. GENITOURINARY: Reveals a circumcised male phallus. No current discharge, lesions, or curvature. There is some dried blood from earlier bleeding. There is a Mendez catheter in place with now yellow urine output. There are bilateral descended testes and cord structures with no masses or tenderness to palpation. LABORATORY DATA: White blood cell count 18.3, hematocrit 34.6, and platelets 224,000. PT, PTT, INR within normal limits. Sodium 135, potassium 5.4, chloride 99, bicarbonate 22, BUN 42, creatinine 2.0, glucose 221, and calcium 9.3. LFTs within normal limits. Urinalysis, specific gravity 1.010 and pH 5.0. Dip test notable for 2+ protein, 2+ glucose, 5+ blood, and 3+ leukocyte esterase. Microanalysis with 15 to 20 red and 30 to 40 white blood cells per high-power field and moderate bacteria seen. Urine culture is pending. DIAGNOSTIC IMAGING: CT scan of the abdomen and pelvis from 01/13/2019 reveals a distended urinary bladder, suspicious for bladder outlet obstruction. There was a malpositioned Mendez catheter at that time and prostatic hypertrophy. There was moderate hydroureteronephrosis as well. ASSESSMENT AND PLAN: In summary, the patient is an 79-year-old gentleman with a history of BPH and bladder outlet obstruction with chronic urinary retention with Mendez dependent. He has had previous episodes of hematuria and urinary tract infection secondary to the same. He presents to the hospital with penile bleeding and hematuria and evidence of urinary tract infection. He was admitted to the hospital. Physical exam reveals a Mendez catheter in place, it is now draining clear yellow urine output. Laboratory data is notable for an elevated white blood cell count and renal insufficiency and evidence of urinary tract infection. Culture is pending. There is no relevant imaging from this hospitalization, but previous CT scan revealed an enlarged prostate and distended bladder. It appears that this patient has two reasons that he blood. One is that he has a urinary tract infection, which can cause hematuria. Additionally, I think the Mendez catheter was pulled accidentally into the urethra causing the bleeding that was noted from the penis. The catheter has been changed and replaced and antibiotics have been started and the patient has improved. If he looks well tomorrow, I think it is okay to send him out with oral antibiotics to complete 7 to 10 days of total therapy. He can follow up with his regular urologist, Dr. Nolasco regarding the same. Thank you for allowing me to participate in the care of this nice gentleman. Please do not hesitate to contact me for any questions that you may further have regarding his care. I will be happy to see him with you as needed. Dwayne Candelaria M.D. DR: BIRGIT JOB#: [id number] CC:
[2019-02-05 04:00] VITALS: BP 118/55
[2019-02-05] MEDS: NovoLOG Insulin Flexpen SUBQ SCH ×2 (06:39→11:34)
--- NOTE | 2019-02-05 07:07 | NUR ---
HAND-OFF: Report given to Richelle GONZALEZ .
--- NOTE | 2019-02-05 07:07 | NUR ---
NURSE NOTES: Received report from Pratima GONZALEZ. Patient asleep but arousable. Bed in lowest position locked. No c/o pain. F/C intact patent and noted yellow colored urine. No signs of distress noted. IVF with NS@100ml/hr running in left hand 22G intact patent. Will continue to monitor.
[2019-02-05 08:00] VITALS: BP 129/65
--- NOTE | 2019-02-05 08:13 | Nephrology Progress Note ---
Assessment/Plan Assessment/Plan A/P 1) Hematuria- herrera trauma and UTI 2) UTI- DC today on Cipro for 7 days 3) Hyperkalemia- mild - AM labs pending 4) DM- low carb/ISS accuchek DC today once labs return Subjective Date patient seen: Feb 05, 2019 Time patient seen: 08:11 ROS Limited/Unobtainable: No Allergies: Coded Allergies: No Known Allergies (Unverified , 01/13/19) All Systems: reviewed and negative except above Subjective Patient feeling better. Hematuria has stopped Objective Last 24 Hour Vital Signs Date Time Temp Pulse Resp B/P (MAP) Pulse Ox O2 Delivery O2 Flow Rate FiO2 02/05/19 04:00 64 02/05/19 04:00 98.0 65 20 118/55 (76) 92 65 02/05/19 00:00 68 02/05/19 00:00 98.0 70 20 116/58 (77) 97 70 02/04/19 21:00 Room Air 02/04/19 20:00 98.0 77 20 102/58 (73) 94 77 02/04/19 20:00 69 02/04/19 15:24 Room Air 02/04/19 15:07 85 02/04/19 14:33 98.6 86 16 130/80 98 Room Air 02/04/19 13:56 98.1 87 16 138/66 99 Room Air 02/04/19 11:43 98.1 98 15 134/71 100 Room Air 02/04/19 09:37 98.0 110 16 172/82 100 Room Air 02/04/19 09:27 98.1 104 16 154/84 98 Room Air Intake and Output 02/04/19 02/05/19 18:59 06:59 Intake Total 1900 ml Output Total 2000 ml 1500 ml Balance -100 ml -1500 ml Intake Oral 0 ml IV Total 1900 ml Output Urine Total 2000 ml 1500 ml Laboratory Tests 02/04/19 10:15: White Blood Count 18.3H, Red Blood Count 3.82L, Hemoglobin 11.6L, Hematocrit 34.6L, Mean Corpuscular Volume 91, Mean Corpuscular Hemoglobin 30.5, Mean Corpuscular Hemoglobin Concent 33.6, Red Cell Distribution Width 14.4, Platelet Count 224, Mean Platelet Volume 6.4L, Neutrophils (%) (Auto) , Lymphocytes (%) ( Auto) , Monocytes (%) (Auto) , Eosinophils (%) (Auto) , Basophils (%) (Auto) , Differential Total Cells Counted 100, Neutrophils % (Manual) 89H, Lymphocytes % (Manual) 7L, Monocytes % (Manual) 4, Eosinophils % (Manual) 0, Basophils % ( Manual) 0, Band Neutrophils 0, Platelet Estimate Adequate, Platelet Morphology Normal, Red Blood Cell Morphology Normal, Sodium Level 135L, Potassium Level 5.4H, Chloride Level 99, Carbon Dioxide Level 22, Anion Gap 14, Blood Urea Nitrogen 46H, Creatinine 2.0H, Estimat Glomerular Filtration Rate , Glucose Level 221H, Calcium Level 9.3, Total Bilirubin 0.6, Aspartate Amino Transf (AST/ SGOT) 15, Alanine Aminotransferase (ALT/SGPT) 13, Alkaline Phosphatase 75, Total Protein 8.1, Albumin 3.3L, Globulin 4.8, Albumin/Globulin Ratio 0.7L, Lipase 104 02/04/19 10:30: Urine Color Pale yellow, Urine Appearance Cloudy, Urine pH 5, Urine Specific [place] 1.010, Urine Protein 2+H, Urine Glucose (UA) 2+H, Urine Ketones Negative , Urine Blood 5+H, Urine Nitrite Negative, Urine Bilirubin Negative, Urine Urobilinogen Normal, Urine Leukocyte Esterase 3+H, Urine RBC 15-20H, Urine WBC 30-40H, Urine Squamous Epithelial Cells Few, Urine Bacteria ModerateH 02/04/19 10:50: Prothrombin Time 10.9, Prothromb Time International Ratio 1.0, Activated Partial Thromboplast Time 29 Height (Feet): 5 Height (Inches): 5.00 Weight (Pounds): 116 General Appearance: no apparent distress, alert EENT: normal ENT inspection Neck: normal alignment, supple Cardiovascular: normal rate, regular rhythm Respiratory/Chest: lungs clear, normal breath sounds Abdomen: non tender, soft Edema: no edema noted Arm (L), no edema noted Arm (R), no edema noted Leg (L), no edema noted Leg (R), no edema noted Pedal (L), no edema noted Pedal (R), no edema noted Generalized Shaheen Acosta MD Feb 05, 2019 08:13
--- NOTE | 2019-02-05 08:15 | Discharge Instructions ---
Discharge Instructions Discharge Instructions Services at Discharge: day care Resume Normal Activity?: Yes Activity: light activity Follow Up Orders Follow up with Urology and Nephrology 1 week For Congestive Heart Failure Reminder Report to your physician any weight gain of 5 pounds or more in one week. Shaheen Acosta MD Feb 05, 2019 08:15
[2019-02-05 08:50] LABS: ANION GAP 11 mmol/L (5-15); BLOOD UREA NITROGEN 40 mg/dL (7-18); CARBON DIOXIDE 23 MMOL/L (21-32); CHLORIDE 105 MMOL/L (98-107); CREATININE 1.9 MG/DL (0.55-1.30); POTASSIUM 4.5 MMOL/L (3.5-5.1); SODIUM 138 MMOL/L (136-145)
[2019-02-05 09:03] LABS: BASOPHILS % (AUTO) 0.5 % (0.0-2.0); EOSINOPHILS % (AUTO) 0.9 % (0.0-3.0); HEMATOCRIT 24.1 % (42.0-52.0); LYMPHOCYTES % (AUTO) 21.3 % (20.0-45.0); MEAN CORPUSCULAR VOLUME 91 FL (80-99); MONOCYTES % (AUTO) 5.5 % (1.0-10.0); NEUTROPHILS % (AUTO) 71.8 % (45.0-75.0); PLATELET COUNT 203 K/UL (150-450); RED BLOOD COUNT 2.66 M/UL (4.70-6.10); RED CELL DISTRIBUTION WIDTH 13.9 % (11.6-14.8); WHITE BLOOD COUNT 8.9 K/UL (4.8-10.8)
[2019-02-05] MEDS ORDERED: CIPRO500 MG/51 PO (10:41)
[2019-02-05 12:00] VITALS: BP 134/71
--- NOTE | 2019-02-05 12:41 | NUR ---
Discharge: Patient is being discharged from medical care. Awake, alert and oriented x3. discharged with herrera catheter with leg bag. Noted yellow colored urine. After care instructions given upon discharge. All medical devices such as IV and ID band , monitoring specialist were removed. Patient ambulated out with all personal belongings with his sister with steady gait and taxi was provided upon discharge.
[2019-02-05] MEDS ORDERED: Tamsulosin 0.4mg cap ORAL SCH (21:00)
--- NOTE | 2019-02-06 07:49 | Discharge Summary ---
Discharge Summary Discharge Summary _ DATE OF ADMISSION: 02/04/2019 DATE OF DISCHARGE: 02/05/2019 DISCHARGED BY: Dr. Shaheen Acosta REHEATER: Dr. Dwayne Candelaria BRIEF HOSPITAL COURSE: Patient is an 79-year-old gentleman, who presented to the emergency room due to new onset recurrent hematuria. Patient has history of CKD, stage IV with a baseline creatinine ranging anywhere from 2 to 3.2. Patient has an indwelling Mendez catheter due to an enlarged prostate. He had multiple admissions both here and at [facility] due to same condition of hematuria requiring further evaluation. Family stated he was awaiting possibility of making a decision on surgical intervention versus long-term catheter placement. He had a home health nurse and the nurse pulled out the Mendez catheter, then after, he was noted to have blood clots coming out from the urethra prompting visit to ED. He also has medical history significant for diabetes and hypertension. On evaluation at ED, there was bleeding from the urethral meatus. Patient denied taking any blood thinners. Blood work showed elevated WBC to 18. Hemoglobin was 11, hematocrit 34. Potassium was elevated to 5.4. Creatinine 2.0, BUN 46. Urinalysis showed 2+ protein, 2+ glucose, negative ketone, 5+ occult blood, 3+ leukocyte esterase, 15-20 RBC, 30-40 WBC, and moderate bacteria. Mendez catheter was inserted. He was given IV fluids and was started on IV ciprofloxacin. He was then admitted for evaluation of hematuria, hyperkalemia and UTI. He was given IV hydration. He was started on IV ceftriaxone. Blood glucose was monitored. He was placed on insulin sliding scale. He was given metformin. He was resumed on Flomax. He was given DVT and GI prophylaxis. Urologist was consulted. Mendez catheter was draining clear yellow urine output. Hematuria resolved. He was assessed to be possibly secondary from UTI and from Mendez catheter trauma. Was recommended to continue p.o. antibiotics and can follow-up with his regular urologist, Dr. Nolasco and to follow-up on final culture results. Potassium level normalized. Creatinine was stable. Urine culture showed growth of E. coli. Due to rapid and unexpected improvement in patient's symptoms, patient was discharged home the following day. FINAL DIAGNOSES: Hematuria secondary to Mendez trauma and UTI E. coli UTI Mild hyperkalemia Diabetes mellitus DISPOSITION: Patient was discharged home. DISCHARGE MEDICATIONS: Refer to Discharge Medication List. DISCHARGE INSTRUCTIONS: Follow-up in a week. I have been assigned to complete a discharge summary on this account, I was not involved with the patient's management. Marah Flores NP Feb 06, 2019 07:49
--- NOTE | 2019-02-07 14:30 | Cardiology Report ---
APPROVED REPORT EKG Measurement Heart [id number] Normal sinus rhythm Normal ECG
== END 2019-02-05 12:41 | disposition home or self-care (01) | DRG 699 ==
LOC: EDBD 09:32 → EMR 10:20 → 2E 12:54 → EDBEDREQ 14:26 → EMR 14:58
DX: T83.83XA Hemorrhage due to genitourinary prosthetic devices, implants and grafts, initial encounter (principal); N39.0 Urinary tract infection, site not specified; N17.9 Acute kidney failure, unspecified; N18.4 Chronic kidney disease, stage 4 (severe); N13.8 Other obstructive and reflux uropathy; Y84.6 Urinary catheterization as the cause of abnormal reaction of the patient, or of later complication, without mention of misadventure at the time of the procedure; B96.20 Unspecified Escherichia coli [E. coli] as the cause of diseases classified elsewhere; E87.5 Hyperkalemia; E11.22 Type 2 diabetes mellitus with diabetic chronic kidney disease; I12.9 Hypertensive chronic kidney disease with stage 1 through stage 4 chronic kidney disease, or unspecified chronic kidney disease; N40.1 Benign prostatic hyperplasia with lower urinary tract symptoms; R33.8 Other retention of urine
CPT/HCPCS: 36415; 80048; 80053; 81003; 82962; 83690; 85007; 85025; 85610; 85730; 86850; 86900; 86901; 87086; 87181; 93005; 96361; 96365; 99285; J1815